=== PATIENT | female | born 1955 | race Caucasian/White ===

== ENCOUNTER → 2017-02-26 | Outpatient (CLI) | payer BC ==
--- NOTE | 2017-02-26 12:17 | P.STRESS ---
- Stress Test Note Stress Test Results/Findings: Exam Performed: stress echo exercise Exam Date: 02/26/17 Height: 5 ft 8 in Weight: 116.573 kg Protocol: GEOVANNI Stage: STAGE 2 Duration of Exercise: 5:03 MIN Resting Heart Rate: 91 Resting Blood Pressure: 160/73 Maximum Achieved Heart Rate: 153 Maximum Achieved Blood Pressure: 199/81 85% PMHR: 135 100% PMHR: 158 METS: 3.6 Technologist Comment: Stress Test Results/Findings: This is a 61-year-old female was referred for a stress echocardiogram for evaluation of chest pain. Patient has history of hypertension. Baseline EKG showed sinus rhythm with mild diffuse ST-T abnormalities. Blood pressure at rest is 160/73. Was started of 91. Patient woke up about 5 minutes and 30 seconds achieving a maximal to 153 with a blood pressure 119/81. EKGs taken during exercise showed more pronounced ST-T changes in the inferolateral leads with upsloping ST segments. These changes resolved quickly within 3 minutes, in the post exercise period. Patient did not express any chest pain. Echo findings showed normal wall motion and thickening at rest. Stress echo showed augmentation wall motion and thickening in all segments. Final impression: #1. Nondiagnostic stress test because of baseline EKG normalities. #2. Patient did not experience any chest pain. #3. Negative stress echo.
== END | disposition home or self-care (01) ==
LOC: RADMAMWWP 10:15
PROVIDERS: ATTEND Family Medicine
DX: R07.89 Other chest pain (principal)
CPT/HCPCS: 93017; 93350

== ENCOUNTER 2018-10-20 17:48 | Observation (INO) | payer BC ==
--- NOTE | 2018-10-20 17:59 | ED ---
Chest Pain HPI - General Chief Complaint: Chest Pain Stated Complaint: chest pain Time Seen by Provider: 10/20/18 17:58 Source: patient, family, RN notes reviewed, old records reviewed Mode of arrival: wheelchair Limitations: no limitations - History of Present Illness Initial Comments: This is a 63-year-old female the ER for evasive chest pain anterior chest pain chest pain that occurred while shopping today. She then went home and it and experienced chest pain prior to dinner. Patient's chest pain as heaviness anterior shortness of breath and diaphoresis of both involved. Patient currently has continued chest pain MD Complaint: chest pain -: hour(s) Onset: during rest, during exertion Pain Location: substernal, left chest Pain Radiation: LUE Severity: mild Severity scale (1-10): 5 Quality: tightness, heaviness Consistency: intermittent Improves With: nothing Worsens With: nothing Anginal Symptoms: diaphoresis, dyspnea Other Symptoms: palpitations Treatments Prior to Arrival: none - Related Data Home Medications Medication Instructions Recorded Confirmed Aspirin EC [Ecotrin Low Dose] 81 mg PO DAILY 10/20/18 10/20/18 Allergies Allergy/AdvReac Type Severity Reaction Status Date / Time latex Allergy BLISTERS Verified 10/20/18 22:26 TAPE Allergy Intermediate Rash/Hives Uncoded 10/20/18 22:26 Review of Systems ROS Statement: Those systems with pertinent positive or pertinent negative responses have been documented in the HPI. ROS Other: All systems not noted in ROS Statement are negative. EKG Findings - EKG Comments: EKG Findings:: EKG shows sinus rhythm rate of 66, VA 166, QRS 84, QTC 440 Past Medical History Additional Past Medical History / Comment(s): HYPOGLYCEMIA History of Any Multi-Drug Resistant Organisms: None Reported Past Surgical History: Joint Replacement Additional Past Surgical History / Comment(s): RIGHT AND LEFT TOTAL KNEE,THROAT ABSCESS,CARPAL TUNNEL RELEASE Past Anesthesia/Blood Transfusion Reactions: No Reported Reaction Smoking Status: Former smoker Past Alcohol Use History: None Reported Past Drug Use History: None Reported - Past Family History Mother Family Medical History: No Reported History General Exam Limitations: no limitations General appearance: alert, in no apparent distress Head exam: Present: atraumatic, normocephalic, normal inspection Eye exam: Present: normal appearance, PERRL, EOMI. Absent: scleral icterus, conjunctival injection, periorbital swelling ENT exam: Present: normal exam, mucous membranes moist Neck exam: Present: normal inspection. Absent: tenderness, meningismus, lymphadenopathy Respiratory exam: Present: normal lung sounds bilaterally. Absent: respiratory distress, wheezes, rales, rhonchi, stridor Cardiovascular Exam: Present: regular rate, normal rhythm, normal heart sounds. Absent: systolic murmur, diastolic murmur, rubs, gallop, clicks GI/Abdominal exam: Present: soft, normal bowel sounds. Absent: distended, tenderness, guarding, rebound, rigid Extremities exam: Present: normal inspection, full ROM, normal capillary refill. Absent: tenderness, pedal edema, joint swelling, calf tenderness Back exam: Present: normal inspection Neurological exam: Present: alert, oriented X3, CN II-XII intact Psychiatric exam: Present: normal affect, normal mood Skin exam: Present: warm, dry, intact, normal color. Absent: rash Course Vital Signs 10/20/18 10/20/18 17:52 20:53 Temperature 98.4 F Pulse Rate 76 61 Respiratory 16 16 Rate Blood Pressure 180/87 148/88 O2 Sat by Pulse 98 100 Oximetry - Reevaluation(s) Reevaluation #1: Medical record is reviewed and noncontributory Patient remains with recurrent chest pain Chest Pain MDM - MDM 63 female the ER for evasive chest pain. typical chest pain in character. Patient has mild cardiac risk, patient will be admitted for cardiac observation , treat she'll troponins Critical Care Time Critical Care Time: Yes Total Critical Care Time: 31 Disposition Clinical Impression: Chest pain Disposition: ADMITTED IP TO THIS HOSP Condition: Undetermined
[2018-10-20 18:54] LABS: Basophils # (A) 0.1 k/uL (0-0.2); Basophils % (A) 1 %; Eosinophils # (A) 0.3 k/uL (0-0.7); Eosinophils % (A) 6 %; HCT 42.5 % (34.0-46.0); HGB 13.8 gm/dL (11.4-16.0); Lymphocytes # (A) 1.9 k/uL (1.0-4.8); Lymphocytes % (A) 33 %; MCH 30.3 pg (25.0-35.0); MCHC 32.4 g/dL (31.0-37.0); MCV 93.4 fL (80.0-100.0); Mean Platelet Volume 7.4; Monocytes # (A) 0.3 k/uL (0-1.0); Monocytes % (A) 5 %; Neutrophils # (A) 2.9 k/uL (1.3-7.7); Neutrophils % (A) 52 %; Platelet Count 322 k/uL (150-450); RBC 4.55 m/uL (3.80-5.40); RDW 13.4 % (11.5-15.5); WBC 5.6 k/uL (3.8-10.6)
[2018-10-20 19:01] LABS: INR 0.9 (<1.2); Partial Thromboplastin Time 27.5 sec (22.0-30.0); Prothrombin Time 10.2 sec (9.0-12.0)
[2018-10-20 19:03] LABS: ALT 38 U/L (9-52); AST 29 U/L (14-36); Albumin 4.1 g/dL (3.5-5.0); Alkaline Phosphatase 99 U/L (38-126); Anion Gap 8 mmol/L; Blood Urea Nitrogen 13 mg/dL (7-17); Calcium 9.4 mg/dL (8.4-10.2); Carbon Dioxide 25 mmol/L (22-30); Chloride 109 mmol/L (98-107); Glucose 98 mg/dL (74-99); Lipase 154 U/L (23-300); Potassium 4.3 mmol/L (3.5-5.1); Sodium 142 mmol/L (137-145); Total Bilirubin 0.5 mg/dL (0.2-1.3); Total Protein 7.2 g/dL (6.3-8.2)
--- NOTE | 2018-10-20 19:14 | XR ---
EXAMINATION TYPE: XR chest 2V DATE OF EXAM: 10/20/2018 COMPARISON: None INDICATION: Chest pain TECHNIQUE: Frontal and lateral views of the chest are obtained. FINDINGS: The heart size is normal. The pulmonary vasculature is normal. The lungs are clear. IMPRESSION: 1. No acute pulmonary process.
[2018-10-20] MEDS ORDERED: NITROGLYCERIN SL TABS 0.4 MG TAB SUBLINGUAL PRN (20:31)
[2018-10-20] MEDS ORDERED: HEPARIN SODIUM,PORCINE 5,000 UNIT/ML 1 ML VIAL IV ONE (20:31)
[2018-10-20] MEDS ORDERED: HEPARIN SODIUM,PORCINE 5,000 UNIT/ML 1 ML VIAL IV PRN (20:36)
[2018-10-20] MEDS ORDERED: HEPARIN SOD,PORK IN 0.45% NACL 25,000 UNIT in 0.45% NACL 1 250ML.BAG IV SCH (20:45)
[2018-10-20 22:06] VITALS: RESP 18
[2018-10-20] MEDS: METOPROLOL TARTRATE 25 MG TAB PO SCH (23:44)
[2018-10-21] MEDS ORDERED: TEMAZEPAM 15 MG CAP PO PRN (00:01)
[2018-10-21] MEDS ORDERED: ACETAMINOPHEN TAB 500 MG TAB PO PRN (00:01)
[2018-10-21] MEDS ORDERED: ALPRAZolam 0.25 MG TAB PO PRN (00:01)
[2018-10-21] MEDS ORDERED: PANTOPRAZOLE 40 MG TABLET PO SCH (07:30)
--- NOTE | 2018-10-21 08:04 | HP ---
HISTORY AND PHYSICAL DATE OF SERVICE: 10/20/2018 CHIEF COMPLAINT: Chest pain. HISTORY OF PRESENT ILLNESS: This 63-year-old woman with a past medical history of multiple medical problems including history of hypertension, history of hypoglycemia, history of DJD being followed by Dr. Weeks in the outpatient setting, was complaining of left- sided chest pain. Today the patient apparently had different type of chest pain with heaviness in the anterior part of the chest and patient was taken to [facility] and admitted for further evaluation and treatment. The patient also recurrence of pain also. There is no history of any fever, rigors. No history headache, loss of consciousness or seizures. The patient's blood pressure has been watched at this time. Patient apparently has had some . There is no history of any fever, rigors or chills at this time. The patient had stress echo in 2017, which was nondiagnostic. PAST MEDICAL HISTORY: History of hypertension, hypoglycemia. MEDICATIONS: Medications prior to admission include home medications are: 1. Aspirin 325 mg daily. 2. Lipitor 80 mg daily. 4. Lopressor 25 mg p.o. daily. 5. Nitrostat 0.4 sublingual p.r.n. ALLERGIES: Allergies are LATEX, TAPE. FAMILY HISTORY: No history of heart disease or strokes in the family. SOCIAL HISTORY: Previous history of smoking. No history of alcohol intake. REVIEW OF SYSTEMS: ENT: No diminished hearing or diminished vision. CARDIOVASCULAR SYSTEM: As mentioned earlier. RESPIRATORY SYSTEM: As mentioned earlier. GI: No nausea. : No dysuria. NERVOUS SYSTEM: No numbness or weakness. ALLERGY/IMMUNOLOGY: No history of asthma. MUSCULOSKELETAL: As mentioned earlier. HEMATOLOGY/ONCOLOGY: No history of anemia. ENDOCRINE: No history of diabetes. CONSTITUTIONAL: As mentioned earlier. DERMATOLOGY: Negative. RHEUMATOLOGY: Negative. PSYCHIATRY: As mentioned earlier. PHYSICAL EXAMINATION: The patient is alert and oriented x3. The pulse is 63, blood pressure 157/84, respiration 18, temperature 97.8, pulse ox 96% on room air. HEENT: Conjunctivae normal. NECK: No jugular venous distention. CARDIOVASCULAR: S1, S2 muffled. No S3, no S4. RESPIRATORY: Breath sounds diminished at the bases. No rhonchi. No crackles. Abdomen is soft, nontender. No mass palpable. LEGS: No edema. No swelling. NERVOUS SYSTEM: Higher function as mentioned earlier. Moves all 4 limbs. No focal motor, sensory deficits. LYMPHATICS: No lymphadenopathy of the neck, axillae or groin. SKIN: No ulcer, rash or bleeding. JOINTS: No active deforming arthropathy. LABS: CBC within normal. Sodium 142, potassium 4.3. ASSESSMENT: 1. Chest pain possible unstable angina. 2. Hypertension. 3. Hypoglycemia. 4. History of degenerative joint disease. 5. ST-T changes on the EKG. RECOMMENDATIONS AND DISCUSSION: In this 63-year-old woman who presented with multiple complex medical issues, we will monitor the patient closely. Continue the current medication, continue symptomatic treatment. Rule out myocardial infarction. Unstable angina protocol. Closely follow with Cardiology. Otherwise, possible stress test versus cardiac catheterization. The patient did have a stress echo which could not be interpreted previously. Prognosis guarded. Resume the home medications. Further recommendations to follow. A copy of dictation forwarded to Dr. Weeks who is the primary physician. MMODL / IJN: [id number] / TEA
[2018-10-21] MEDS ORDERED: CAFFEINE CITRATE 60 MG/3 ML VIAL IV PRN (08:27)
[2018-10-21] MEDS ORDERED: REGADENOSON 0.4 MG/5 ML SYRINGE IV ONE (08:27)
--- NOTE | 2018-10-21 08:30 | P.CRDCN ---
History of Present Illness Consult date: 10/21/18 Chief complaint: Chest pain History of present illness: This is a pleasant 63-year-old female patient with a past medical history significant for hypertension as well as significant family history of coronary artery disease presented to the hospital complaining of chest discomfort. She was in her usual state of health yesterday when she was doing some shopping and started experiencing discomfort in the chest, as a sharp kind of discomfort , with some radiation to the left arm, with associated symptoms of shortness of breath and sweating. No dizziness or lightheadedness. No syncope. The discomfort lasted for few minutes only and then subsided. The EKG showed sinus rhythm without any significant ST or T-wave abnormalities but with nonspecific changes. The cardiac enzymes came in to be unremarkable. The chest x-ray did not show any acute abnormalities. The patient does have hypertension. No dyslipidemia. No major cardiovascular surgery before. No history of smoking as well as. But she does have a very significant family history of coronary artery disease. Past Medical History Past Medical History: Hypertension Additional Past Medical History / Comment(s): HYPOGLYCEMIA, Borderline hypertension pt states that she was on a medication and was taken off due to hypotension-patient and dr "watching her BP at this time", stress test 2017- pt states that the results were questionable History of Any Multi-Drug Resistant Organisms: None Reported Past Surgical History: Joint Replacement Additional Past Surgical History / Comment(s): RIGHT AND LEFT TOTAL KNEE,THROAT ABSCESS,CARPAL TUNNEL RELEASE Past Anesthesia/Blood Transfusion Reactions: No Reported Reaction Smoking Status: Former smoker - Past Family History Mother Family Medical History: No Reported History Medications and Allergies Home Medications Medication Instructions Recorded Confirmed Type Aspirin EC [Ecotrin Low Dose] 81 mg PO DAILY 10/20/18 10/20/18 History Allergies Allergy/AdvReac Type Severity Reaction Status Date / Time latex Allergy BLISTERS Verified 10/20/18 22:26 TAPE Allergy Intermediate Rash/Hives Uncoded 10/20/18 22:26 Physical Exam Vitals: Vital Signs Temp Pulse Pulse Resp BP BP Pulse Ox 10/21/18 07:59 98.1 F 58 L 18 129/84 97 10/21/18 03:42 97.7 F 55 L 18 113/67 95 10/21/18 03:15 18 10/20/18 22:53 18 10/20/18 22:04 97.8 F 63 18 157/84 96 10/20/18 20:53 61 16 148/88 100 10/20/18 17:52 98.4 F 76 16 180/87 98 Intake and Output 10/20/18 10/21/18 10/21/18 22:59 06:59 14:59 Intake Total 65.167 Balance 65.167 Intake: Intake, IV Titration 65.167 Amount Heparin Sod,Pork in 0.45% 65.167 NaCl 25,000 unit In 0.45 % NaCl 1 250ml.bag @ 8. 819 UNITS/KG/HR 10 mls/hr IV .Q24H [facility] Rx#: [id number] Other: Voiding Method Toilet Toilet # Voids 2 Weight 113.398 kg - Constitutional General appearance: no acute distress - Respiratory Respiratory: bilateral: CTA - Cardiovascular Rhythm: regular Heart sounds: normal: S1, S2 Abnormal Heart Sounds: systolic murmur Results 10/20/18 18:25 10/20/18 18:25 Cardiac Enzymes 10/20/18 10/20/18 10/21/18 Range/Units 18:25 18:25 00:35 AST 29 (14-36) U/L Troponin I <0.012 <0.012 (0.000-0.034) ng/mL Coagulation 10/20/18 10/21/18 Range/Units 18:25 03:01 PT 10.2 (9.0-12.0) sec APTT 27.5 40.0 H (22.0-30.0) sec CBC 10/20/18 Range/Units 18:25 WBC 5.6 (3.8-10.6) k/uL RBC 4.55 (3.80-5.40) m/uL Hgb 13.8 (11.4-16.0) gm/dL Hct 42.5 (34.0-46.0) % Plt Count 322 (150-450) k/uL Comprehensive Metabolic Panel 10/20/18 Range/Units 18:25 Sodium 142 (137-145) mmol/L Potassium 4.3 (3.5-5.1) mmol/L Chloride 109 H (98-107) mmol/L Carbon Dioxide 25 (22-30) mmol/L BUN 13 (7-17) mg/dL Creatinine 0.80 (0.52-1.04) mg/dL Glucose 98 (74-99) mg/dL Calcium 9.4 (8.4-10.2) mg/dL AST 29 (14-36) U/L ALT 38 (9-52) U/L Alkaline Phosphatase 99 (38-126) U/L Total Protein 7.2 (6.3-8.2) g/dL Albumin 4.1 (3.5-5.0) g/dL Current Medications Generic Name Dose Route Start Last Admin Trade Name Freq PRN Reason Stop Dose Admin Acetaminophen 500 mg 10/21/18 00:01 Tylenol Tab PO Q6HR PRN Fever and/ or Pain Alprazolam 0.25 mg 10/21/18 00:01 Xanax PO TID PRN Anxiety Aspirin 325 mg 10/21/18 09:00 Aspirin PO DAILY [facility] Atorvastatin Calcium 80 mg 10/21/18 09:00 Lipitor PO DAILY [facility] Heparin Sodium (Porcine) 0 unit 10/20/18 20:36 10/21/18 03:36 Heparin IV 2,825 unit Q6HR PRN Administration Low PTT Protocol Heparin Sodium/Sodium Chloride 250 mls @ 10 mls/hr 10/20/18 20:45 10/21/18 03 :36 25,000 unit/ Sodium Chloride IV 10.85 units/kg/hr .Q24H [facility] 12.3 mls/hr Titration Protocol 8.819 UNITS/KG/HR Metoprolol Tartrate 25 mg 10/20/18 21:00 10/20/18 23:44 Lopressor PO 25 mg BID [facility]BDIEL Administration Nitroglycerin 0.4 mg 10/20/18 20:31 Nitrostat SUBLINGUAL Q5M PRN Chest Pain Pantoprazole Sodium 40 mg 10/21/18 07:30 Protonix PO AC-BRKFST [facility] Temazepam 15 mg 10/21/18 00:01 Restoril PO HS PRN Insomnia Intake and Output 10/20/18 10/21/18 10/21/18 22:59 06:59 14:59 Intake Total 65.167 Balance 65.167 Intake: Intake, IV Titration 65.167 Amount Heparin Sod,Pork in 0.45% 65.167 NaCl 25,000 unit In 0.45 % NaCl 1 250ml.bag @ 8. 819 UNITS/KG/HR 10 mls/hr IV .Q24H [facility] Rx#: [id number] Other: Voiding Method Toilet Toilet # Voids 2 Weight 113.398 kg 10/20/18 18:25 10/20/18 18:25 Assessment and Plan Assessment: Assessment #1 atypical chest discomfort #2 hypertension #3 significant family history of coronary artery disease Plan #1 the patient was ruled out for acute coronary event #2 we will obtain stress test #3 follow-up with the patient Thank you for allowing us participate in her care
[2018-10-21 08:32] LABS: Mean Platelet Volume 7.9; Platelet Count 286 k/uL (150-450)
[2018-10-21] MEDS ORDERED: ATORVASTATIN 80 MG TAB PO SCH (09:00)
[2018-10-21] MEDS ORDERED: ASPIRIN 325 MG TAB PO SCH (09:00)
[2018-10-21 10:11] LABS: Cholesterol 169 mg/dL (<200); HDL Cholesterol 36 mg/dL (40-60); LDL Cholesterol,Calculated 111 mg/dL (0-99); Triglycerides 111 mg/dL (<150)
--- NOTE | 2018-10-21 13:55 | EST ---
EXERCISE STRESS AGE: 63 SEX: F HT: 5'8" WT: 252 PROTOCOL: Lexiscan Cardiolite Stress Test HEART RATE REST: 66 BLOOD PRESSURE REST: 153/94 MAXIMUM HEART RATE ACHIEVED: 85 MAXIMUM BLOOD PRESSURE: 174/100 INDICATIONS: Chest pain. CLINICAL INFORMATION: STRESS DATA: Pretesting physical examination showed a heart rate of 66, pressure is 153/94 mmHg. Baseline EKG showed sinus mechanism, 0.4 mg of Lexiscan given over 15 seconds per protocol. Max heart rate was 85 beats per minute and maximum pressure was 174/100 mmHg. Clinically, the patient did not have any symptoms and the EKG did not show any significant ST or T-wave abnormalities concerning for ischemia. CONCLUSION: 1. Nondiagnostic electrocardiogram stress testing response to Lexiscan. 2. Please follow up on the Cardiolite portion on separate report. MMODL / IJN: [id number] /
[2018-10-21 15:29] VITALS: BP 131/78; PULSE 60; TEMP 98.2
--- NOTE | 2018-10-21 15:37 | NM ---
EXAMINATION TYPE: NM stress lexiscan cardiolite DATE OF EXAM: 10/21/2018 COMPARISON: NONE HISTORY: Chest pain TECHNIQUE: After the intravenous administration of 9.8 mCi Tc 99m Sestamibi - Cardiolite resting SPE CT images acquired 45 minutes post injection. The patient received 0.4mg Lexiscan, 24.4 mCi Tc 99m Sestamibi - Stress images obtained [address] injection FINDINGS: No fixed or reversible perfusion defects are evident. Gated wall motion appears normal. Ejection frac tion of 55% is normal. Some cardiac thinning may be present on the polar maps. This appears less suspicious on the SPECT deuce ging. IMPRESSION: 1. No stress-induced ischemic change.
[2018-10-21] MEDS ORDERED: RX INFO: IV CONTRAST WAS GIVEN 1 EACH MISC MISCELLANE PRN (16:13)
--- NOTE | 2018-10-21 16:59 | CT ---
EXAMINATION TYPE: CT angio chest DATE OF EXAM: 10/21/2018 4:46 PM COMPARISON: None HISTORY: chest pain CT DLP: 511.1 mGycm Automated exposure control for dose reduction was used. CONTRAST: CTA scan of the thorax is performed with IV Contrast, patient injected with 93cc mL of Isovue 370, pu lmonary embolism protocol. There are 3-D post processed images.. FINDINGS: There is patchy atelectasis at the lung bases. There is no pleural effusion. Heart size is normal. Th ere is no pericardial effusion. Thoracic aorta appears intact without evidence of aneurysm or dissection. There is no mediastinal sallie nopathy. There are no hilar masses. There is normal contrast opacification of the pulmonary arteries. There are no filling defects. There is degenerative spurring in the thoracic spine. IMPRESSION: NO EVIDENCE OF PULMONARY EMBOLISM. PATCHY ATELECTASIS AT THE LUNG BASES.
[2018-10-21] MEDS: METOPROLOL TARTRATE 25 MG TAB PO SCH (17:11)
--- NOTE | 2018-10-23 08:51 | DS ---
DISCHARGE SUMMARY DATE OF ADMISSION: 10/20/2018 DATE OF DISCHARGE: 10/21/2018 FINAL DIAGNOSES: 1. Chest pain, could be musculoskeletal. 2. Obesity, body mass index 38. 3. Essential hypertension. HOSPITAL COURSE: This patient presented with chest pain. Did have a nuclear stress test that was negative. CT angio was negative for PE. The patient has previously been seen by Dr. Erik Paul with whom the patient will follow. On examination, temperature 98.3 pulse 61, respiratory 18, blood pressure 152/88, repeat blood pressure 131/78. Lungs are clear. CARDIOVASCULAR: First and second sounds normal. LDL 111. DISCHARGE MEDICATION: Aspirin 81 mg a day. Follow up with Dr. Erik Paul in one week. Follow up with Dr. Weeks in one week. MMODL / IJN: [id number] /
== END 2018-10-21 18:42 | disposition home or self-care (01) ==
LOC: EC 17:48 → 1SOBS 20:31
PROVIDERS: ADMIT Hospitalist; ATTEND Hospitalist
DX: R07.89 Other chest pain (principal); R06.02 Shortness of breath; R06.00 Dyspnea, unspecified; R61 Generalized hyperhidrosis; R00.2 Palpitations; E66.9 Obesity, unspecified; Z68.38 Body mass index [BMI] 38.0-38.9, adult; E16.2 Hypoglycemia, unspecified; I10 Essential (primary) hypertension; M19.90 Unspecified osteoarthritis, unspecified site; Z79.82 Long term (current) use of aspirin; Z79.899 Other long term (current) drug therapy; Z91.040 Latex allergy status; Z91.048 Other nonmedicinal substance allergy status; Z87.891 Personal history of nicotine dependence; Z82.49 Family history of ischemic heart disease and other diseases of the circulatory system
CPT/HCPCS: 96366 ×2; 96376 ×2; 96365; 99291; 36415; 93005; 93017; 83880; 80061; 80053; 83690; 83735; 84484 ×2; 85025; 85049; 85610; 85730 ×2; 71046; 71275; 78452; G0378 ×2; A9500; J1644 ×3; J2785; Q9967

== ENCOUNTER → 2021-05-12 | Outpatient (CLI) | payer BC ==
--- NOTE | 2021-05-13 12:36 | MM ---
Reason for exam: screening (asymptomatic). Last mammogram was performed 6 years and 2 months ago. History: Patient is postmenopausal and had first child at age 41. Family history of breast cancer in sister at age 64 and premenopausal breast cancer in sister at age 39. Benign excisional biopsy of the left breast, June 10, 1999. Physical Findings: A clinical breast exam by your physician is recommended on an annual basis and results should be correlated with mammographic findings. MG Screening Mammo w CAD Bilateral CC and MLO view(s) were taken. Prior study comparison: February 24, 2015, bilateral MG screening mammo w CAD. September 19, 2013, [facility] DIGITAL RIGHT MAMMOGRAM w/CAD. The breast tissue is heterogeneously dense. This may lower the sensitivity of mammography. Finding: There is a subtle, indistinct, equal architectural distortion in the upper outer quadrant, middle position of the right breast, may have associated calcifications. Focal asymmetry, changing from 2014, left upper inner quadrant. New finding since February 24, 2015 and September 19, 2013. ASSESSMENT: Incomplete: need additional imaging evaluation, BI-RAD 0 RECOMMENDATION: Special view mammogram of both breasts. If lesion persists on supplemental views, image directed ultrasound is recommended. [facility] will attempt to contact patient to return for supplemental views and ultrasound if indicated.
== END | disposition home or self-care (01) ==
LOC: RADMAMWWP 15:59
PROVIDERS: ATTEND Family Medicine
DX: Z12.31 Encounter for screening mammogram for malignant neoplasm of breast (principal); Z78.0 Asymptomatic menopausal state; Z80.3 Family history of malignant neoplasm of breast
CPT/HCPCS: 77067

== ENCOUNTER → 2021-05-27 | Outpatient (CLI) | payer BC ==
--- NOTE | 2021-05-30 12:11 | MM ---
Reason for exam: additional evaluation requested from abnormal screening. Last mammogram was performed less than 1 month ago. History: Patient is postmenopausal and had first child at age 41. Family history of breast cancer in sister at age 64 and premenopausal breast cancer in sister at age 39. Benign excisional biopsy of the left breast, June 10, 1999. Physical Findings: Nurse did not find any significant physical abnormalities on exam. MG 3D Work Up W/Cad VALORIE Bilateral ML view(s) were taken. CC with magnification and MLO with magnification view(s) were taken of the right breast. Spot compression CC and spot compression MLO view(s) were taken of the left breast. Prior study comparison: May 12, 2021, bilateral MG screening mammo w CAD. There are scattered fibroglandular densities. Finding: There are diffuse/scattered, fine calcifications in the middle position of the right breast. There is no discrete abnormality including area of concern. No significant changes in finding since May 12, 2021. These results were verbally communicated with the patient and result sheet given to the patient on 05/27/21. ASSESSMENT: Probably benign, BI-RAD 3 RECOMMENDATION: Follow-up diagnostic mammogram of both breasts in 6 months.
== END | disposition home or self-care (01) ==
LOC: RADMAMWWP 14:53
PROVIDERS: ATTEND Family Medicine
DX: R92.8 Other abnormal and inconclusive findings on diagnostic imaging of breast (principal); R92.1 Mammographic calcification found on diagnostic imaging of breast; Z80.3 Family history of malignant neoplasm of breast; Z78.0 Asymptomatic menopausal state
CPT/HCPCS: 77062; 77066

== ENCOUNTER → 2021-11-28 | Outpatient (CLI) | payer BC ==
--- NOTE | 2021-11-29 08:34 | MM ---
Reason for exam: follow-up at short interval from prior study. Last mammogram was performed 6 months ago. History: Patient is postmenopausal and had first child at age 41. Family history of breast cancer in sister at age 49, breast cancer in sister at age 64, and premenopausal breast cancer in sister at age 39. Benign excisional biopsy of the left breast, June 10, 1999. Physical Findings: A clinical breast exam by your physician is recommended on an annual basis and results should be correlated with mammographic findings. MG 3D Diag Mammo W/Cad VALORIE Bilateral CC and MLO view(s) were taken. Prior study comparison: May 27, 2021, bilateral MG 3d work up w/cad VALORIE. May 12, 2021, bilateral MG screening mammo w CAD. There are scattered fibroglandular densities. Stable regional calcifications right breast laterally unchanged. Asymmetric density central inner left CC view, stable for 6 months. This may be surgical scar. Additional follow up recommended. ASSESSMENT: Probably benign, BI-RAD 3 RECOMMENDATION: Follow-up diagnostic mammogram of the left breast in 6 months.
== END | disposition home or self-care (01) ==
LOC: RADMAMWWP 14:44
PROVIDERS: ATTEND Family Medicine
DX: R92.1 Mammographic calcification found on diagnostic imaging of breast (principal); Z78.0 Asymptomatic menopausal state; Z80.3 Family history of malignant neoplasm of breast
CPT/HCPCS: 77062; 77066

== ENCOUNTER → 2023-03-21 | Outpatient (CLI) | payer BC ==
--- NOTE | 2023-03-22 20:48 | MM ---
Reason for Exam: Screening (asymptomatic). Last mammogram was performed 1 year(s) and 3 month(s) ago. Patient History: Menarche at age 12. First Full-Term at age 41. Late child-bearing (after 30). Postmenopausal. 06/10/1999, Benign Excisional Biopsy on the left side. Sister had breast cancer, age 64. Sister had breast cancer, age 49. Sister had breast cancer, age 39. Risk Values: Mi 5 year model risk: 5.9%. NCI Lifetime model risk: 18.1%. Prior Study Comparison: 05/12/2021 Bilateral Screening Mammogram, LOCATED WITHIN [facility]. 05/27/2021 Bilateral Diagnostic Mammogram, LOCATED [facility]IN [facility]. 11/28/2021 Bilateral Diagnostic Mammogram, LOCATED WITHIN [facility]. Tissue Density: There are scattered fibroglandular densities. Findings: Analyzed By CAD. Centrally located punctate calcifications on both sides remain unchanged. Redemonstrated postexcisional changes on the left. There is no suspicious group of microcalcifications or new suspicious mass in either breast. Overall Assessment: Benign, BI-RAD 2 Management: Screening Mammogram of both breasts in 1 year. See note below in regards to patient's increased 5 year Mi score. Patient should continue monthly self-breast exams. A clinical breast exam by your physician is recommended on an annual basis. This exam should not preclude additional follow-up of suspicious palpable abnormalities. Note on Mi scores and lifetime risk: 1. A Mi score greater than 3% is considered moderate risk. If this is the case, consider specialist referral to assess eligibility for a risk reducing agent. 2. If overall lifetime risk for the development of breast cancer is 20% or higher, the patient may qualify for future screening with alternating mammogram and breast MRI. Electronically signed and approved by: Carol Lopez M.D. Radiologist
== END | disposition home or self-care (01) ==
LOC: RADMAMWWP 16:03
PROVIDERS: ATTEND Family Medicine
DX: Z12.31 Encounter for screening mammogram for malignant neoplasm of breast (principal); Z78.0 Asymptomatic menopausal state; Z80.3 Family history of malignant neoplasm of breast
CPT/HCPCS: 77063; 77067

== ENCOUNTER → 2024-03-24 | Outpatient (CLI) | payer BC ==
--- NOTE | 2024-03-26 09:06 | MM ---
Reason for Exam: Screening (asymptomatic). Last screening mammogram was performed 12 month(s) ago. Patient History: Menarche at age 12. First Full-Term at age 41. Late child-bearing (after 30). Postmenopausal. 06/10/1999, Benign Excisional Biopsy on the left side. Sister had breast cancer, age 64. Sister had breast cancer, age 49. Sister had breast cancer, age 39. Risk Values: Mi 5 year model risk: 6.0%. NCI Lifetime model risk: 17.4%. Prior Study Comparison: 05/27/2021 Bilateral Diagnostic Mammogram, [facility]. 11/28/2021 Bilateral Diagnostic Mammogram, [facility]. 03/21/2023 Bilateral MG 3D screening mammo w/cad, [facility]. Tissue Density: There are scattered areas of fibroglandular density. Findings: Analyzed By CAD. There is a new area of distortion outer upper left breast approximately 12 cm from the nipple. Additional views are recommended. There is an additional area of distortion medial left breast which has been worked up previously. Torsion or mass within the right breast. Benign calcifications are seen bilaterally. Overall Assessment: Incomplete: need additional imaging evaluation, BI-RAD 0 Management: Diagnostic Mammogram of the left breast. . Patient should continue monthly self-breast exams. A clinical breast exam by your physician is recommended on an annual basis. This exam should not preclude additional follow-up of suspicious palpable abnormalities. Note on Mi scores and lifetime risk: 1. A Mi score greater than 3% is considered moderate risk. If this is the case, consider specialist referral to assess eligibility for a risk reducing agent. 2. If overall lifetime risk for the development of breast cancer is 20% or higher, the patient may qualify for future screening with alternating mammogram and breast MRI. Electronically signed and approved by: Faraz De Los Santos M.D. Radiologis
== END | disposition home or self-care (01) ==
LOC: RADMAMWWP 07:15
PROVIDERS: ATTEND Family Medicine
DX: Z12.31 Encounter for screening mammogram for malignant neoplasm of breast (principal); R92.323 Mammographic fibroglandular density, bilateral breasts; Z78.0 Asymptomatic menopausal state; Z80.3 Family history of malignant neoplasm of breast
CPT/HCPCS: 77063; 77067

== ENCOUNTER → 2024-04-30 | Outpatient (CLI) | payer MEDICARE ==
--- NOTE | 2024-04-30 09:02 | MM ---
Reason for Exam: Follow-up at short interval from prior study. Last screening mammogram was performed 2 month(s) ago. Patient History: Menarche at age 12. First Full-Term at age 41. Late child-bearing (after 30). Postmenopausal. 06/10/1999, Benign Excisional Biopsy on the left side. Sister had breast cancer, age 64. Sister had breast cancer, age 49. Sister had breast cancer, age 39. Risk Values: Mi 5 year model risk: 6.0%. NCI Lifetime model risk: 17.4%. Prior Study Comparison: 11/28/2021 Bilateral Diagnostic Mammogram, [facility]. 03/21/2023 Bilateral MG 3D screening mammo w/cad, [facility]. 03/24/2024 Bilateral MG 3D screening mammo w/cad, [facility]. Tissue Density: Left: There are scattered areas of fibroglandular density. Findings: Analyzed By CAD. Left: Persistent architectural distortion 10.6 centimeters from the nipple on ML view and 11.4 centers nipple and CC view. The approximate upper outer position round 2:00. Overall Assessment: Incomplete: need additional imaging evaluation, BI-RAD 0 Management: Diagnostic Breast Ultrasound of the left breast. Results were given to the patient verbally at the time of exam. Patient should continue monthly self-breast exams. A clinical breast exam by your physician is recommended on an annual basis. This exam should not preclude additional follow-up of suspicious palpable abnormalities. Note on Mi scores and lifetime risk: 1. A Mi score greater than 3% is considered moderate risk. If this is the case, consider specialist referral to assess eligibility for a risk reducing agent. 2. If overall lifetime risk for the development of breast cancer is 20% or higher, the patient may qualify for future screening with alternating mammogram and breast MRI. Electronically signed and approved by: Manny Heck DO
--- NOTE | 2024-04-30 09:37 | USB ---
Reason for Exam: Additional evaluation requested from abnormal screening. Patient History: Menarche at age 12. First Full-Term at age 41. Late child-bearing (after 30). Postmenopausal. 06/10/1999, Benign Excisional Biopsy on the left side. Sister had breast cancer, age 64. Sister had breast cancer, age 49. Sister had breast cancer, age 39. Risk Values: Mi 5 year model risk: 6.0%. NCI Lifetime model risk: 17.4%. Technique: Method: Targeted. Doppler: Color. Patient Position: RPO. Prior Study Comparison: 11/28/2021 Bilateral Diagnostic Mammogram, [facility]. 03/21/2023 Bilateral MG 3D screening mammo w/cad, [facility]. 03/24/2024 Bilateral MG 3D screening mammo w/cad, [facility]. Findings: The upper outer quadrant of the left breast, the axilla of the left breast and the retroareolar of the left breast were scanned. Technique utilized:US breast workup limited LT Image; Ultrasound imaging of: Area of concern, retroareolar region and axilla. No evidence for organizing fluid collection or mass. Architectural distortion means suspicious on mammography, mammographic stereotactic biopsy recommended. Overall Assessment: Suspicious, BI-RAD 4 Management: Stereotactic Core Biopsy of the left breast. A clinical breast exam by your physician is recommended on an annual basis and results should be correlated with mammographic findings. This exam should not preclude additional follow-up of suspicious palpable abnormalities. Results were given to the patient verbally at the time of exam. Electronically signed and approved by: Manny Heck DO
== END | disposition home or self-care (01) ==
LOC: RADMAMWWP 08:15
PROVIDERS: ATTEND Family Medicine
DX: R92.8 Other abnormal and inconclusive findings on diagnostic imaging of breast (principal); Z78.0 Asymptomatic menopausal state; Z80.3 Family history of malignant neoplasm of breast; R92.323 Mammographic fibroglandular density, bilateral breasts
CPT/HCPCS: 77065; 76642; G0279; 77061

== ENCOUNTER → 2024-05-15 | Day surgery (SDC) | payer MEDICARE ==
[~2024-05-15] MED LIST: ALPRAZolam 0.25 MG TAB PO PRN
[2024-05-15 07:39] VITALS: RESP 16
--- NOTE | 2024-05-15 09:05 | P.PCN ---
Date of Procedure: 05/15/24 Preoperative Diagnosis: Architectural distortion left breast approximately 2:00 position Postoperative Diagnosis: Same Procedure(s) Performed: Left breast stereotactic core biopsy Anesthesia: local Surgeon: Maddy Moser Pathology: other (Breast tissue) Condition: stable Disposition: same day Indications for Procedure: Architectural distortion left breast Description of Procedure: The patient was taken to the stereotactic core biopsy room. A retail attendant film was obtained with the patient in an upright chair. A CC from above approach was used of the left breast. The area of concern was identified. This was confirmed with Dr. Mcclain from radiology. The area was targeted. The breast was prepped using chlorhexidine. 25 cc of 1% lidocaine were used to anesthetize the area of concern. A 9 gauge vacuum-assisted core rotating biopsy needle was driven to the correct coordinates. Prefire film was obtained and the needle was noted to be in the correct location. The needle was fired. A post fire film revealed the needle to be in the correct location. 14 core specimens were obtained. A secure jackson Top-Hat clip was placed. Postprocedure radiograph will be performed to confirm the location of the clip. The patient tolerated the procedure in stable condition will follow with Dr. Segal next week. The specimen is sent to pathology.
[2024-05-15 09:23] VITALS: BP 150/91; PULSE 67; TEMP 98.1
--- NOTE | 2024-05-16 07:51 | MM ---
Date of Procedure: 05/15/24 Preoperative Diagnosis: Architectural distortion left breast approximately 2:00 position Postoperative Diagnosis: Same Procedure(s) Performed: Left breast stereotactic core biopsy Anesthesia: local Surgeon: Maddy Moser Pathology: other (Breast tissue) Condition: stable Disposition: same day Indications for Procedure: Architectural distortion left breast Description of Procedure: The patient was taken to the stereotactic core biopsy room. A manager event film was obtained with the patient in an upright chair. A CC from above approach was used of the left breast. The area of concern was identified. This was confirmed with Dr. Mcclain from radiology. The area was targeted. The breast was prepped using chlorhexidine. 25 cc of 1% lidocaine were used to anesthetize the area of concern. A 9 gauge vacuum-assisted core rotating biopsy needle was driven to the correct coordinates. Prefire film was obtained and the needle was noted to be in the correct location. The needle was fired. A post fire film revealed the needle to be in the correct location. 14 core specimens were obtained. A secure jackson Top-Hat clip was placed. Postprocedure radiograph will be performed to confirm the location of the clip. The patient tolerated the procedure in stable condition will follow with Dr. Segal next week. The specimen is sent to pathology. [facility]
== END ==
LOC: RADMAMWWP 07:18
PROVIDERS: ATTEND Surgery
DX: D05.02 Lobular carcinoma in situ of left breast (principal)
CPT/HCPCS: 88305; 88341; 88342

== ENCOUNTER → 2024-05-15 | Outpatient (CLI) | payer MEDICARE ==
[2024-05-15 08:00] VITALS: BP 124/80; PULSE 60; RESP 18; TEMP 98.2
--- NOTE | 2024-05-15 08:27 | P.GSCN ---
History of Present Illness Consult date: 05/15/24 Reason for Consult: Abnormal left breast mammogram/architectural distortion at 2 o'clock position Requesting physician: Ramirez Weeks History of present illness: Lanette is a 68-year-old white female who on a sreening mammogram on 03-24-24 was noted to have architectural distortion in the left breast. Ultrasound was performed on 04-30-24 which did not reveal a specific lesion at that site. The patient had further diagnostic left breast mammogram on 04-30-24 and the area of architectural distortion remained at the 2 o'clock position in the left breast. This was personally reviewed with Dr. Mcclain. A stereotactic core biopsy was recommended. She does not feel anything of concern in either breast. She had a left breast open biopsy approximately 26 years ago which was benign. She is not complaining of any trauma or infection in either breast. She does have a family history of breast cancer and that 2 sisters have had breast cancer. Caffeine: 2 cups/day nicotine: stopped 40 years ago used to smoke 1PPd for 10 years Mi Risk: 6% lifetime risk: 17.4% We have discussed chemoprophylaxis and at this time she is not interested. Family History: sister diagnosed with breast cancer at 29, at 39; mets to brain sister: diagnosed blood cancer at 47 at 49; sister: diagnosed at 67 with breast cancer doing well at this time brother: prostate cancer No hormonal testing done. Hormonal History: menarche: 12 , breast fed yes, age at : 40 menopause: 44 hormones: none BCP: 10 years Surgical history: Left breast biopsy Bilateral knee replacement Abscess left side of neck Bilateral cataract surgery Medical history: HTN Social History: alcohol: occasional nicotine: as above drugs:none Review of Systems - Constitutional Denies fever, Denies weight loss - EENT Eyes: denies blurred vision Ears: bilateral: tinnitus, deny: decreased hearing Ears, nose, mouth and throat: Denies dysphagia - Breasts bilateral: as per HPI - Cardiovascular Denies chest pain, Denies shortness of breath - Respiratory Denies cough, Denies 7 - Gastrointestinal Reports as per HPI - Genitourinary Genitourinary: Denies dysuria, Denies hematuria Menstruation: Reports postmenopausal - Musculoskeletal Reports as per HPI - Integumentary Denies rash, Denies unusual bruising - Neurological Denies headaches, Denies syncope - Psychiatric Reports as per HPI - Endocrine Reports as per HPI - Hematologic/Lymphatic Denies easy bleeding, Denies easy bruising Hematologic/Lymphatic Comment(s): low dose baby aspirin - Allergic/Immunologic Reports as per HPI, Reports seasonal allergies Past Medical History Past Medical History: Hypertension Additional Past Medical History / Comment(s): HYPOGLYCEMIA History of Any Multi-Drug Resistant Organisms: None Reported Past Surgical History: Joint Replacement Additional Past Surgical History / Comment(s): RIGHT AND LEFT TOTAL KNEE,THROAT ABSCESS,CARPAL TUNNEL RELEASE Past Anesthesia/Blood Transfusion Reactions: No Reported Reaction Past Psychological History: No Psychological Hx Reported Smoking Status: Former smoker Past Alcohol Use History: None Reported Past Drug Use History: None Reported - Past Family History Mother Family Medical History: No Reported History Medications and Allergies Home Medications Medication Instructions Recorded Confirmed Type Aspirin EC [Ecotrin Low Dose] 81 mg PO DAILY 10/20/18 05/15/24 History Valsartan 40 mg PO DAILY 05/05/24 05/15/24 History Allergies Allergy/AdvReac Type Severity Reaction Status Date / Time latex Allergy BLISTERS Verified 05/15/24 07:57 TAPE Allergy Intermediate Rash/Hives Uncoded 05/15/24 07:57 Surgical - Exam Vital Signs Temp Pulse Resp BP Pulse Ox 98.2 F 60 18 124/80 95 05/15/24 07:58 05/15/24 07:58 05/15/24 07:58 05/15/24 07:58 05/15/24 07:58 - General no distress - Eyes normal ocular movement - Neck trachea midline - Respiratory normal respiratory effort, clear to auscultation - Cardiovascular Rhythm: regular Heart Sounds: normal: S1, S2 - Abdomen Abdomen: soft - Integumentary normal turgor - Neurologic no disoriented, no combative - Musculoskeletal normal gait, normal posture - Psychiatric oriented to time, oriented to person, oriented to place, speech is normal, memory intact Breast Exam: inspection: bilateral grade, right breast larger than left breast bilateral grade 3 ptosis palpation: right breast: Exam no dominant masses or nodules of concern Right axilla: No adenopathy of concern Left breast: Well-healed scar from prior surgery, no dominant masses or nodules of concern and Multi positional exam Left axilla: No adenopathy of concern Results Mammogram and left breast diagnostic mammogram reviewed with Dr. Shogren, the b ilateral mammogram was from 03-24-2024, the diagnostic left breast mammogram was from 04-30-2024. There is some architectural distortion at the 2 o'clock position for which stereotactic core biopsy was recommended. Assessment and Plan Assessment: Impression: Abnormal left breast mammogram Hypertension Family history of cancer Plan: Left breast stereotactic core biopsy Risk and benefits of the procedure discussed with the patient. Risk include but are not limited to bleeding, infection, reaction to the anesthetic. If the tissue were felt to be discordant then further tissue acquisition may be necessary. The patient understands and wishes to proceed. CC: Dr. Weeks
== END ==
LOC: WWCWWP 07:17
PROVIDERS: ATTEND Surgery
DX: R92.8 Other abnormal and inconclusive findings on diagnostic imaging of breast (principal); I10 Essential (primary) hypertension; Z80.3 Family history of malignant neoplasm of breast; Z87.891 Personal history of nicotine dependence; Z91.040 Latex allergy status; Z91.048 Other nonmedicinal substance allergy status; Z79.899 Other long term (current) drug therapy

== ENCOUNTER → 2024-05-22 | Outpatient (CLI) | payer MEDICARE ==
[2024-05-22 12:05] VITALS: BP 161/75; PULSE 71; RESP 16; TEMP 97.9
--- NOTE | 2024-05-22 12:35 | P.PN ---
Subjective Progress Note Date: 05/22/24 Principal diagnosis: invasive lobular cancer right breast Ramirez Weeks History of present illness: Lanette is a 68-year-old white female who on a sreening mammogram on 03-24-24 was noted to have architectural distortion in the left breast. Ultrasound was performed on 04-30-24 which did not reveal a specific lesion at that site. The patient had further diagnostic left breast mammogram on 04-30-24 and the area of architectural distortion remained at the 2 o'clock position in the left breast. This was personally reviewed with Dr. Mcclain. A stereotactic core biopsy was recommended. She does not feel anything of concern in either breast. She had a left breast open biopsy approximately 26 years ago which was benign. She is not complaining of any trauma or infection in either breast. She does have a family history of breast cancer and that 2 sisters have had breast cancer. core biopsy on 05-15-24 (+) invasive lobular cancer Caffeine: 2 cups/day nicotine: stopped 40 years ago used to smoke 1PPd for 10 years Mi Risk: 6% lifetime risk: 17.4% We have discussed chemoprophylaxis and at this time she is not interested. Family History: sister diagnosed with breast cancer at 29, at 39; mets to brain sister: diagnosed blood cancer at 47 at 49; sister: diagnosed at 67 with breast cancer doing well at this time brother: prostate cancer No hormonal testing done. Hormonal History: menarche: 12 , breast fed yes, age at : 40 menopause: 44 hormones: none BCP: 10 years Surgical history: Left breast biopsy Bilateral knee replacement Abscess left side of neck Bilateral cataract surgery Medical history: HTN Social History: alcohol: occasional nicotine: as above drugs:none Review of Systems - Constitutional Denies fever, Denies weight loss - EENT Eyes: denies blurred vision Ears: bilateral: tinnitus, deny: decreased hearing Ears, nose, mouth and throat: Denies dysphagia - Breasts bilateral: as per HPI - Cardiovascular Denies chest pain, Denies shortness of breath - Respiratory Denies cough - Gastrointestinal Reports as per HPI - Genitourinary Genitourinary: Denies dysuria, Denies hematuria Menstruation: Reports postmenopausal - Musculoskeletal Reports as per HPI - Integumentary Denies rash, Denies unusual bruising - Neurological Denies headaches, Denies syncope - Psychiatric Reports as per HPI - Endocrine Reports as per HPI - Hematologic/Lymphatic Denies easy bleeding, Denies easy bruising Hematologic/Lymphatic Comment(s): low dose baby aspirin - Allergic/Immunologic Reports as per HPI, Reports seasonal allergies Past Medical History Past Medical History: Hypertension Additional Past Medical History / Comment(s): HYPOGLYCEMIA History of Any Multi-Drug Resistant Organisms: None Reported Past Surgical History: Joint Replacement Additional Past Surgical History / Comment(s): RIGHT AND LEFT TOTAL KNEE,THROAT ABSCESS,CARPAL TUNNEL RELEASE Past Anesthesia/Blood Transfusion Reactions: No Reported Reaction Past Psychological History: No Psychological Hx Reported Smoking Status: Former smoker Past Alcohol Use History: None Reported Past Drug Use History: None Reported - Past Family History Mother Family Medical History: No Reported History Medications and Allergies Home Medications Medication Instructions Recorded Confirmed Type Aspirin EC [Ecotrin Low Dose] 81 mg PO DAILY 10/20/18 05/15/24 History Valsartan 40 mg PO DAILY 05/05/24 05/15/24 History Allergies Allergy/AdvReac Type Severity Reaction Status Date / Time latex Allergy BLISTERS Verified 05/15/24 07:57 TAPE Allergy Intermediate Rash/Hives Uncoded 05/15/24 07:57 Objective - Vital Signs Vital signs: Vital Signs Temp 97.9 F 05/22/24 12:02 Pulse 71 05/22/24 12:02 Resp 16 05/22/24 12:02 BP 161/75 05/22/24 12:02 Pulse Ox 98 05/22/24 12:02 FiO2 Intake & Output 05/21/24 05/22/24 05/22/24 18:59 06:59 18:59 Weight 121.563 kg - Constitutional General appearance: Present: cooperative - EENT Eyes: Present: EOMI ENT: Present: hearing grossly normal - Neck Neck: Present: normal ROM - Respiratory Respiratory: bilateral: CTA - Cardiovascular Rhythm: regular - Integumentary Integumentary Comment(s): echymosis right breast, no infection or masses Integumentary: Present: normal turgor - Musculoskeletal Musculoskeletal: Present: gait normal - Psychiatric Psychiatric: Present: A&O x's 3, appropriate affect, intact judgment & insight Assessment and Plan Assessment: impression: stage I invasive lobluar cancer Plan: genetic testing present at tumor board MRI of the breast follow up after tumor board; mastopexy incision with needle localization lumpectomy of the right breast, right sentinel node injection, right sentinel node biopsy, possible right axillary node dissection CC: DR. Weeks
== END ==
LOC: WWCWWP 10:39
PROVIDERS: ATTEND Surgery
DX: C50.911 Malignant neoplasm of unspecified site of right female breast (principal); Z80.3 Family history of malignant neoplasm of breast; Z87.891 Personal history of nicotine dependence; Z91.040 Latex allergy status; Z91.048 Other nonmedicinal substance allergy status

== ENCOUNTER → 2024-06-03 | Outpatient (CLI) | payer MEDICARE ==
--- NOTE | 2024-06-06 13:04 | BMR ---
EXAM DATE: 06/03/2024 EXAM DESCRIPTION: MRI-Breast Bilat (W/WO Contrast) INDICATION: Left breast malignancy, pretreatment staging COMPARISON: PRIOR MRIs: None available. Correlation to mammograms: 05/15/2024, 04/30/2024, 03/21/2023. Correlation to ultrasound: 04/30/2024. CONTRAST: Twelve cc Gadavist IV gadolinium contrast TECHNIQUE: Multiplanar multisequence MR imaging of both breasts was performed with a dedicated breast coil. Images were obtained before and after administration of IV gadolinium, using the standard breast mass protocol. Computer aided detection was utilized for interpretation. FINDINGS: LMP: Postmenopausal General breast composition: There are scattered areas of fibroglandular tissue Background parenchymal enhancement: Mild RIGHT BREAST: The T2 weighted series shows no areas of abnormal signal intensity. Review of the dynamic series shows 1.1 cm area of non mass enhancement at approximately 9 o'clock with persistent enhancement kinetics, favored to correspond to area with microcalcifications seen on CC view laterally middle depth. LEFT BREAST: The T2 weighted series shows no areas of abnormal signal intensity. Review of the dynamic series shows previously biopsied mass which estimates 2.2 x 1.6 x 1.4 cm with additional areas of non mass enhancement extending anteriorly and posteriorly for total AP dimension of approximately 6.5 cm and craniocaudal dimension of 3.1 cm. No evidence of extension to the nipple or chest wall.. LYMPH NODES: There is no evidence of internal mammary or axillary adenopathy. IMPRESSION: RIGHT BREAST: 1.1 cm area of non mass enhancement at approximately 9 o'clock 9 cm from the nipple may represent fibrocystic changes, however likely corresponds to area of grouped calcifications seen mammographically. Diagnostic right breast mammogram with spot magnification views and targeted ultrasound is recommended. If no suspicious findings, finding is considered benign. LEFT BREAST: Known malignancy in the left breast upper outer quadrant with primary mass estimating 2.2 x 1.6 x 1.4 cm in additional areas of non mass enhancement for total area of abnormal enhancement estimating 6.5 x 3.1 cm. OVERALL ASSESSMENT--BI-RADS 0: Need additional imaging. MTDD
== END | disposition home or self-care (01) ==
LOC: RADMRIMAIN 21:15
PROVIDERS: ATTEND Surgery
DX: C50.412 Malignant neoplasm of upper-outer quadrant of left female breast (principal)
CPT/HCPCS: 77049

== ENCOUNTER → 2024-06-12 | Outpatient (CLI) | payer MEDICARE ==
--- NOTE | 2024-06-12 14:16 | MM ---
Reason for Exam: Additional evaluation requested from prior study. Last screening mammogram was performed 3 month(s) ago. Patient History: Menarche at age 12. First Full-Term at age 41. Late child-bearing (after 30). Postmenopausal. Breast cancer, left, age 68. 05/15/2024, Malignant MG stereo VAD BX LT on the left side. 06/10/1999, Benign Excisional Biopsy on the left side. Sister had breast cancer, age 64. Sister had breast cancer, age 49. Sister had breast cancer, age 39. Prior Study Comparison: 03/21/2023 Bilateral MG 3D screening mammo w/cad, [facility]. 03/24/2024 Bilateral MG 3D screening mammo w/cad, [facility]. 04/30/2024 Left MG 3D work up w/cad LT, [facility]. 06/03/2024 Bilateral MR breast bilat wo/w con, [facility]. Tissue Density: Right: There are scattered areas of fibroglandular density. Findings: Analyzed By CAD. Area of nonmass-like enhancement within the right breast correlates with some fibroglandular tissue with punctate calcifications no suspicious pleomorphic calcifications definitively visualized. Second look ultrasound will be performed of the right breast. Overall Assessment: Incomplete: need additional imaging evaluation, BI-RAD 0 Management: Diagnostic Breast Ultrasound of the right breast. Results were given to the patient verbally at the time of exam. Patient should continue monthly self-breast exams. A clinical breast exam by your physician is recommended on an annual basis. This exam should not preclude additional follow-up of suspicious palpable abnormalities. Note on Mi scores and lifetime risk: 1. A Mi score greater than 3% is considered moderate risk. If this is the case, consider specialist referral to assess eligibility for a risk reducing agent. 2. If overall lifetime risk for the development of breast cancer is 20% or higher, the patient may qualify for future screening with alternating mammogram and breast MRI. [facility], , 06/12/2024 2:13 PM. Electronically signed and approved by: Manny Heck DO
--- NOTE | 2024-06-12 14:29 | USB ---
Reason for Exam: Additional evaluation requested from prior study. Patient History: Menarche at age 12. First Full-Term at age 41. Late child-bearing (after 30). Postmenopausal. Breast cancer, left, age 68. 05/15/2024, Malignant MG stereo VAD BX LT on the left side. 06/10/1999, Benign Excisional Biopsy on the left side. Sister had breast cancer, age 64. Sister had breast cancer, age 49. Sister had breast cancer, age 39. Technique: Method: Targeted. Doppler: Color. Patient Position: Supine. Prior Study Comparison: 03/21/2023 Bilateral MG 3D screening mammo w/cad, [facility]. 03/24/2024 Bilateral MG 3D screening mammo w/cad, [facility]. 04/30/2024 Left MG 3D work up w/cad LT, [facility]. Findings: The lateral section of the breast of the right breast, the axilla of the right breast and the retroareolar of the right breast were scanned. Technique utilized:US breast limited RT Image; Ultrasound imaging of: All 4 quadrants, the retroareolar region and axilla. No evidence for organizing fluid collection or mass. No finding to definitively correlate with MRI. Overall Assessment: Negative, BI-RAD 1 Management: Screening Mammogram of both breasts in 1 year. Surgical management for findings on MRI exam. A clinical breast exam by your physician is recommended on an annual basis and results should be correlated with mammographic findings. This exam should not preclude additional follow-up of suspicious palpable abnormalities. Results were given to the patient verbally at the time of exam. [facility], , 06/12/2024 2:21 PM. Electronically signed and approved by: Manny Heck DO
== END | disposition home or self-care (01) ==
LOC: RADMAMWWP 12:39
PROVIDERS: ATTEND Surgery
CPT/HCPCS: 77061; 77065

== ENCOUNTER → 2024-06-23 | Outpatient (CLI) | payer MEDICARE ==
[2024-06-23 08:05] VITALS: BP 139/80; PULSE 66; RESP 16; TEMP 98.3
--- NOTE | 2024-06-23 08:48 | P.PN ---
Subjective Progress Note Date: 06/23/24 Principal diagnosis: left breast invasive lobular cancer Subjective Progress Note Date: 06-13-24 Principal diagnosis: invasive lobular cancer right breast Ramirez Weeks History of present illness: T2 or T3 N0M0ER+Pr+Her2-G2 stage IB clinically (whether T2 or T3) Lanette is a 68-year-old white female initially seen on 05-22-24 who on a sreening mammogram on 03-24-24 was noted to have architectural distortion in the left breast. Ultrasound was performed on 04-30-24 which did not reveal a specific lesion at that site. The patient had further diagnostic left breast mammogram on 04-30-24 and the area of architectural distortion remained at the 2 o'clock position in the left breast. This was personally reviewed with Dr. Mcclain. A stereotactic core biopsy was recommended. She does not feel anything of concern in either breast. She had a left breast open biopsy approximately 26 years ago which was benign. She is not complaining of any trauma or infection in either breast. She does have a family history of breast cancer and that 2 sisters have had breast cancer. Son having unexpected brain surgery the day after first seen/ did well core biopsy on 05-15-24 (+) invasive lobular cancer presentation of case at tumor board on 06-03-24; MRI of the breast done on 06-03-24; lesion in the left breast extends potentially 6.5 cm by 3.1 cm; questionable lesion in the right breast mammogram and ultrasound of area recommended, this was done on 06-12-24 and considered to be BIRAD 1 therefore felt to be benign genetic testing (-) Caffeine: 2 cups/day nicotine: stopped 40 years ago used to smoke 1PPd for 10 years Mi Risk: 6% lifetime risk: 17.4% We have discussed chemoprophylaxis and at this time she is not interested. Family History: sister diagnosed with breast cancer at 29, at 39; mets to brain sister: diagnosed blood cancer at 47 at 49; sister: diagnosed at 67 with breast cancer doing well at this time brother: prostate cancer No hormonal testing done. Hormonal History: menarche: 12 , breast fed yes, age at : 40 menopause: 44 hormones: none BCP: 10 years Surgical history: Left breast biopsy Bilateral knee replacement Abscess left side of neck Bilateral cataract surgery Medical history: HTN Social History: alcohol: occasional nicotine: as above drugs:none Review of Systems - Constitutional Denies fever, Denies weight loss - EENT Eyes: denies blurred vision Ears: bilateral: tinnitus, deny: decreased hearing Ears, nose, mouth and throat: Denies dysphagia - Breasts bilateral: as per HPI - Cardiovascular Denies chest pain, Denies shortness of breath - Respiratory Denies cough - Gastrointestinal Reports as per HPI - Genitourinary Genitourinary: Denies dysuria, Denies hematuria Menstruation: Reports postmenopausal - Musculoskeletal Reports as per HPI - Integumentary Denies rash, Denies unusual bruising - Neurological Denies headaches, Denies syncope - Psychiatric Reports as per HPI - Endocrine Reports as per HPI - Hematologic/Lymphatic Denies easy bleeding, Denies easy bruising Hematologic/Lymphatic Comment(s): low dose baby aspirin - Allergic/Immunologic Reports as per HPI, Reports seasonal allergies Past Medical History Past Medical History: Hypertension Additional Past Medical History / Comment(s): HYPOGLYCEMIA History of Any Multi-Drug Resistant Organisms: None Reported Past Surgical History: Joint Replacement Additional Past Surgical History / Comment(s): RIGHT AND LEFT TOTAL KNEE,THROAT ABSCESS,CARPAL TUNNEL RELEASE Past Anesthesia/Blood Transfusion Reactions: No Reported Reaction Past Psychological History: No Psychological Hx Reported Smoking Status: Former smoker Past Alcohol Use History: None Reported Past Drug Use History: None Reported - Past Family History Mother Family Medical History: No Reported History Medications and Allergies Home Medications Medication Instructions Recorded Confirmed Type Aspirin EC [Ecotrin Low Dose] 81 mg PO DAILY 10/20/18 05/15/24 History Valsartan 40 mg PO DAILY 05/05/24 05/15/24 History Allergies Allergy/AdvReac Type Severity Reaction Status Date / Time latex Allergy BLISTERS Verified 05/15/24 07:57 TAPE Allergy Intermediate Rash/Hives Uncoded 05/15/24 07:57 Objective - Vital Signs Vital signs: Vital Signs Temp 98.3 F 06/23/24 08:03 Pulse 66 06/23/24 08:03 Resp 16 06/23/24 08:03 BP 139/80 06/23/24 08:03 Pulse Ox 98 06/23/24 08:03 FiO2 Intake & Output 06/22/24 06/23/24 06/23/24 18:59 06:59 18:59 Weight 119.748 kg - Constitutional General appearance: Present: cooperative - EENT Eyes: Present: EOMI ENT: Present: hearing grossly normal - Neck Neck: Present: normal ROM - Respiratory Respiratory: bilateral: CTA - Cardiovascular Rhythm: regular Heart sounds: normal: S1, S2 - Integumentary Integumentary: Present: normal turgor - Musculoskeletal Musculoskeletal: Present: gait normal - Psychiatric Psychiatric: Present: A&O x's 3, intact judgment & insight - Additional findings Additional findings: Breast Exam: BRA: 42DD inspection: Right breast larger than left breast, well-healed scar left breast from prior surgery, bilateral grade 3 ptosis Palpation: Right breast: Multi positional exam no dominant masses or nodules of concern, fibrocystic changes Right axilla: No adenopathy of concern Left breast: Multi positional exam no dominant masses or nodules of concern, fibrocystic changes Left axilla: No adenopathy of concern Assessment and Plan Assessment: Impression: Left breast invasive lobular carcinoma MRI questions that extent may be 6.5 cm Genetic testing: Negative Right breast extensive evaluation negative for any evidence of disease which would warrant interventional biopsy Plan: 1. MRI 6.5 cm in the left breast area of disease 2. MRI right breast changes worked up with a right breast mammogram and ultrasound which do not show evidence of lesion in the right breast 3. Genetic testing is negative 4. Will discuss need for metastatic workup and further workup of the left breast with medical oncology
== END ==
LOC: WWCWWP 07:49
PROVIDERS: ATTEND Surgery

== ENCOUNTER → 2024-06-25 | Outpatient (CLI) | payer MEDICARE ==
[2024-06-25 13:50] LABS: African American GFR (CKD) >90 (>60 ml/min/1.73 sqM); Blood Urea Nitrogen 10 mg/dL (7-17); Non-African American GFR(CKD) 89 (>60 ml/min/1.73 sqM)
--- NOTE | 2024-06-27 11:01 | CT ---
EXAMINATION TYPE: CT ChestAbdPelvis w con CT DLP: 1483 mGycm, Automated exposure control for dose reduction was used. DATE OF EXAM: 06/25/2024 2:59 PM COMPARISON: CT chest 10/21/2018 CLINICAL INDICATION:Female, 68 years old with history of C50.412 MALIG NEOPLASM OF UPPER-OUTER QUADRA NT OF; [facility], new dx breast ca Technique: Multiple axial images of the chest, abdomen, and pelvis were obtained following the intrav enous administration of 100 mL Isovue-300. Oral contrast was administered. Two-dimensional coronal an d sagittal reconstructions were obtained. Findings: CHEST: LUNGS/ PLEURA: No pleural effusion, pneumothorax, focal consolidation. Bibasilar linear subsegmental atelectasis. No suspicious pulmonary nodule or mass. AIRWAY: Patent and unremarkable.. HEART: Mildly prominent in size. No pericardial effusion. MEDIASTINUM: No evidence of adenopathy. VASCULATURE: No aortic aneurysm. MUSCULOSKELETAL: No acute osseous abnormalities. Right infraspinatus calcific tendinitis. No aggressi ve osseous lesion. DISH of the mid to lower thoracic spine. SOFT TISSUES/LYMPH NODES: No axillary adenopathy. Lateral left breast 1 cm nodule with biopsy clip abraham collier corresponding to reported breast cancer. LOWER NECK: No significant findings. ABDOMEN: ABDOMEN LIVER: Peripheral right hepatic lobe calcified granuloma. No suspicious lesion. GALLBLADDER AND BILE DUCTS: Unremarkable. PANCREAS: Unremarkable. SPLEEN: Unremarkable. ADRENAL GLANDS: Unremarkable. KIDNEYS AND URETERS: No evidence of hydronephrosis or renal calculus. The kidneys enhance symmetrical ly. Contrast demonstrated within both collecting systems on the delayed phase. PELVIS BLADDER: Unremarkable REPRODUCTIVE: Unremarkable. ABDOMEN & PELVIS STOMACH AND BOWEL: Small hiatal hernia, duodenum is unremarkable. Enteric contrast reaches the distal small bowel. Few scattered sigmoid diverticula without evidence for acute diverticulitis. No focal b owel wall thickening or surrounding inflammatory changes. No evidence of bowel obstruction. PERITONEUM: No evidence of pneumoperitoneum or free fluid. VASCULATURE: No evidence of aortic aneurysm. MUSCULOSKELETAL: No acute osseous abnormalities. No aggressive osseous lesion. Grade 1 anterolisthesi s of L3 on L4 without evidence of pars defects. LYMPH NODES: No evidence for lymphadenopathy. SOFT TISSUE/ABDOMINAL WALL: Unremarkable IMPRESSION: 1. No CT evidence for metastatic disease within the chest, abdomen or pelvis. 2. Left breast 1 cm nodule with biopsy clip likely corresponding to known breast cancer. No axillary adenopathy. 3. Sigmoid diverticulosis without evidence for acute diverticulitis. [facility], , 06/27/2024 10:59 AM
== END | disposition home or self-care (01) ==
LOC: RADCTMAIN 12:14
PROVIDERS: ATTEND Surgery
DX: C50.412 Malignant neoplasm of upper-outer quadrant of left female breast (principal); K57.30 Diverticulosis of large intestine without perforation or abscess without bleeding; Z85.3 Personal history of malignant neoplasm of breast; N63.20 Unspecified lump in the left breast, unspecified quadrant
CPT/HCPCS: 82565; 84520; 71260; 74177; 36415; Q9967

== ENCOUNTER → 2024-06-27 | Outpatient (CLI) | payer MEDICARE ==
[2024-06-27 12:12] VITALS: BP 146/82; PULSE 61; RESP 16; TEMP 97.7
--- NOTE | 2024-06-27 12:22 | P.PN ---
Subjective Progress Note Date: 06/27/24 Principal diagnosis: left breast invasive lobular cancer Subjective Progress Note Date: 06-27-24 Principal diagnosis: left breast invasive lobular cancer Subjective Progress Note Date: 06-13-24 Principal diagnosis: invasive lobular cancer right breast Ramirez Weeks History of present illness: T2 or T3 N0M0ER+Pr+Her2-G2 stage IB clinically (whether T2 or T3) Lanette is a 68-year-old white female initially seen on 05-22-24 who on a sreening mammogram on 03-24-24 was noted to have architectural distortion in the left breast. Ultrasound was performed on 04-30-24 which did not reveal a specific lesion at that site. The patient had further diagnostic left breast mammogram on 04-30-24 and the area of architectural distortion remained at the 2 o'clock position in the left breast. This was personally reviewed with Dr. Mcclain. A stereotactic core biopsy was recommended. She does not feel anything of concern in either breast. She had a left breast open biopsy approximately 26 years ago which was benign. She is not complaining of any trauma or infection in either breast. She does have a family history of breast cancer and that 2 sisters have had breast cancer. Son having unexpected brain surgery the day after first seen/ did well core biopsy on 05-15-24 (+) invasive lobular cancer presentation of case at tumor board on 06-03-24; MRI of the breast done on 06-03-24; lesion in the left breast extends potentially 6.5 cm by 3.1 cm; questionable lesion in the right breast mammogram and ultrasound of area recommended, this was done on 06-12-24 and considered to be BIRAD 1 therefore felt to be benign genetic testing (-) I have discussed with the patient and her the lesion in the left breast may be up to 6.5 cm on the MRI. We have discussed the option of MRI guided biopsy of the 2 greatest extent of the lesion with clips placed so that the lesion could be bracketed if she would want a lumpectomy. At this point the patient would much prefer a mastectomy. We have discussed reconstruction and she is not interested. Secondary to the potential size of the lesion I have recommended a metastatic workup, this will be performed in the near future. If metastatic workup is negative the patient would like to have a left mastectomy with sentinel node biopsy. Risk and benefits of the procedure were discussed with the patient and her . Risk include but are not limited to bleeding, infection, reaction to the anesthetic. Risk of the axillary surgery includes but is not limited to bleeding, infection, reaction to the anesthetic. Additionally there is a risk of injury to the thoracodorsal or long thoracic nerves at risk of lymphedema and a risk of decreased sensation to the left inner arm. She understands and wishes to proceed. Functional assessment: Arm abduction past with no difficulty Pre-op education given patient and her CT scan chest/abdomen/pelvis (-) metastatic disease bone scan not able to be done as no radiotracer until Jul. Case discussed with Dr. Juan Craft concur with mastetomy although bone scan not able to be done clearance Dr. Weeks Caffeine: 2 cups/day nicotine: stopped 40 years ago used to smoke 1PPd for 10 years Mi Risk: 6% lifetime risk: 17.4% We have discussed chemoprophylaxis and at this time she is not interested. Family History: sister diagnosed with breast cancer at 29, at 39; mets to brain sister: diagnosed blood cancer at 47 at 49; sister: diagnosed at 67 with breast cancer doing well at this time brother: prostate cancer No hormonal testing done. Hormonal History: menarche: 12 , breast fed yes, age at : 40 menopause: 44 hormones: none BCP: 10 years Surgical history: Left breast biopsy Bilateral knee replacement Abscess left side of neck Bilateral cataract surgery Medical history: HTN Social History: alcohol: occasional nicotine: as above drugs:none Review of Systems - Constitutional Denies fever, Denies weight loss - EENT Eyes: denies blurred vision Ears: bilateral: tinnitus, deny: decreased hearing Ears, nose, mouth and throat: Denies dysphagia - Breasts bilateral: as per HPI - Cardiovascular Denies chest pain, Denies shortness of breath - Respiratory Denies cough - Gastrointestinal Reports as per HPI - Genitourinary Genitourinary: Denies dysuria, Denies hematuria Menstruation: Reports postmenopausal - Musculoskeletal Reports as per HPI - Integumentary Denies rash, Denies unusual bruising - Neurological Denies headaches, Denies syncope - Psychiatric Reports as per HPI - Endocrine Reports as per HPI - Hematologic/Lymphatic Denies easy bleeding, Denies easy bruising Hematologic/Lymphatic Comment(s): low dose baby aspirin - Allergic/Immunologic Reports as per HPI, Reports seasonal allergies Past Medical History Past Medical History: Hypertension Additional Past Medical History / Comment(s): HYPOGLYCEMIA History of Any Multi-Drug Resistant Organisms: None Reported Past Surgical History: Joint Replacement Additional Past Surgical History / Comment(s): RIGHT AND LEFT TOTAL KNEE,THROAT ABSCESS,CARPAL TUNNEL RELEASE Past Anesthesia/Blood Transfusion Reactions: No Reported Reaction Past Psychological History: No Psychological Hx Reported Smoking Status: Former smoker Past Alcohol Use History: None Reported Past Drug Use History: None Reported - Past Family History Mother Family Medical History: No Reported History Medications and Allergies Home Medications Medication Instructions Recorded Confirmed Type Aspirin EC [Ecotrin Low Dose] 81 mg PO DAILY 10/20/18 05/15/24 History Valsartan 40 mg PO DAILY 05/05/24 05/15/24 History Allergies Allergy/AdvReac Type Severity Reaction Status Date / Time latex Allergy BLISTERS Verified 05/15/24 07:57 TAPE Allergy Intermediate Rash/Hives Uncoded 05/15/24 07:57 Objective - Vital Signs Vital signs: Intake & Output 06/26/24 06/27/24 06/27/24 18:59 06:59 18:59 Weight 117.934 kg - Constitutional General appearance: Present: cooperative - EENT Eyes: Present: EOMI ENT: Present: hearing grossly normal - Neck Neck: Present: normal ROM - Respiratory Respiratory: bilateral: CTA - Cardiovascular Rhythm: regular Heart sounds: normal: S1, S2 - Integumentary Integumentary: Present: normal turgor - Musculoskeletal Musculoskeletal: Present: gait normal - Psychiatric Psychiatric: Present: A&O x's 3, appropriate affect, intact judgment & insight - Additional findings Additional findings: Breast Exam: BRA: 42DD inspection: Right breast larger than left breast, well-healed scar left breast from prior surgery, bilateral grade 3 ptosis Palpation: Right breast: Multi positional exam no dominant masses or nodules of concern, fibrocystic changes Right axilla: No adenopathy of concern Left breast: Multi positional exam no dominant masses or nodules of concern, fibrocystic changes Left axilla: No adenopathy of concern Assessment and Plan Assessment: Impression: Left breast invasive lobular carcinoma MRI questions that extent may be 6.5 cm Genetic testing: Negative Right breast extensive evaluation negative for any evidence of disease which would warrant interventional biopsy Done on 06-25-2024 CT chest abdomen and pelvis no evidence of any metastatic disease, bone scan could not be done secondary to lack of radiotracer, this was discussed with Dr. Alexis Welsh and he felt that it was safe to proceed as though this was negative metastatic workup. I have also discussed with the patient and she understands and wishes to proceed. Plan: 1. MRI 6.5 cm in the left breast area of disease 2. MRI right breast changes worked up with a right breast mammogram and ultrasound which do not show evidence of lesion in the right breast 3. Genetic testing is negative 4. Left mastectomy, left sentinel node injection, left sentinel node biopsy, possible left axillary node dissection 5. clearance DR. Weeks Risk and benefits of the procedure discussed with the patient. Risk include but are not limited to bleeding, infection, reaction to the anesthetic. There is a possibility that the extent of disease in the left breast is less than 6.5 cm which was of suspicion on the MRI the patient understands this and wishes to proceed with a mastectomy. Risk from the sentinel node biopsy/axillary node dissection include but are not limited to bleeding, infection, reaction to the anesthetic. There is a risk of decreased sensation to the inner arm or lymphedema. There is a risk of injury to the thoracodorsal or long thoracic nerve with wing scapula. The patient understands and wishes to proceed. Additional CC's: Ramirez Weeks
== END ==
LOC: WWCWWP 10:48
PROVIDERS: ATTEND Surgery
DX: Z48.817 Encounter for surgical aftercare following surgery on the skin and subcutaneous tissue (principal); Z85.3 Personal history of malignant neoplasm of breast; Z80.3 Family history of malignant neoplasm of breast; Z87.891 Personal history of nicotine dependence; Z91.040 Latex allergy status; Z91.048 Other nonmedicinal substance allergy status

== ENCOUNTER 2024-07-01 07:06 | Day surgery (SDC) | payer MEDICARE ==
[~2024-07-01 07:06] MED LIST changes: -ALPRAZolam 0.25 MG TAB PO PRN; +ALPRAZolam 0.5 MG TAB PO PRN; +HYDROmorphone 0.5 MG/0.5 ML SYRINGE IVP PRN; +LIDOCAINE 1% (10MG/ML) FOR IV START INTRADERMA PRN; +MORPHINE SULFATE 4 MG/ML SYRINGE IV PRN; +SCOPOLAMINE 1 MG/72 HR PATCH TRANSDERM ONE; +fentaNYL (PF) 50 MCG/ML 2 ML AMP IV PRN
[2024-07-01 08:03] LABS: Glucose,Whole Blood 101 mg/dL (70-110)
[2024-07-01] MEDS: LACTATED RINGERS 1,000 ML IV SCH (08:07)
[2024-07-01] MEDS: DEXAMETHASONE SOD PHOSPHATE 4 MG/ML 1 ML VIAL IV ONE (08:08)
[2024-07-01] MEDS: ONDANSETRON 4 MG/2 ML VIAL IVP ONE (08:08)
[2024-07-01] MEDS: ACETAMINOPHEN TAB 500 MG TAB PO PRN (08:08)
[2024-07-01] MEDS: IV FLUID CONTINUATION 1,000 ML IV ONE ×2 (08:16→11:01)
[2024-07-01] MEDS: MIDAZOLAM 2 MG/2 ML VIAL IV PRN (09:04)
[2024-07-01] MEDS: HEPARIN SODIUM,PORCINE 5,000 UNIT/ML 1 ML VIAL SQ PRN (09:12)
[2024-07-01] MEDS ORDERED: MIDAZOLAM 2 MG/2 ML VIAL ONE (09:21)
[2024-07-01] MEDS ORDERED: SODIUM CHLORIDE 0.9% (PF) 10 ML VIAL ONE (09:21)
[2024-07-01] MEDS ORDERED: ePHEDrine 50 MG/ML 1 ML VIAL ONE (09:21)
[2024-07-01] MEDS ORDERED: SUCCINYLCHOLINE CHLORIDE 200 MG/10 ML VIAL IV ONE (09:21)
[2024-07-01] MEDS ORDERED: ROPIVACAINE 5 MG/ML 30 ML VIAL ONE (09:21)
[2024-07-01] MEDS ORDERED: PROPOFOL 10 MG/ML 20 ML VIAL IV ONE (09:21)
[2024-07-01] MEDS ORDERED: LIDOCAINE 1% INJ 10MG/ML (20 ML MDV) ONE (09:21)
[2024-07-01] MEDS ORDERED: fentaNYL (PF) 50 MCG/ML 2 ML AMP ONE (09:21)
[2024-07-01] MEDS ORDERED: LIDOCAINE 4% LTA KIT (4 ML) TOPICAL ONE (09:21)
[2024-07-01] MEDS ORDERED: DEXAMETHASONE SOD PHOSPHATE 4 MG/ML 1 ML VIAL ONE (09:21)
--- NOTE | 2024-07-01 09:31 | P.NAPBC ---
NAPBC Queries - NAPBC Queries Was patient's case review presented at [facility] tumor board? If no, comment.: Yes Was patient's pathology reviewed at [facility]? If no, comment.: Yes Was breast conservation surgery offered? If no, comment.: Yes Was sentinel node biopsy offered? If no, comment.: Yes Was diagnosis confirmed by percutaneous core biopsy? If no, comment.: Yes Is patient mastectomy patient?: Yes Was a preop referral to reconstructive surgeon offered?: Yes Clinical Stage: stage ! invasive lobular left breast cancer [id number]
[2024-07-01] MEDS: METHYLENE BLUE 50 MG/10 ML AMPUL INJ ONE (09:45)
[2024-07-01] MEDS: LIDOCAINE 1% INJ 10MG/ML (5 ML VIAL-PF) SQ ONE ×2 (10:06→11:58)
--- NOTE | 2024-07-01 10:39 | NM ---
EXAMINATION TYPE: NM sentinel node injection DATE OF EXAM: 07/01/2024 COMPARISON: NONE INDICATION: Abnormal mammogram. Informed consent was obtained. A timeout was performed. The area around the left nipple was cleansed with alcohol. In a single dose, a total of 531.0 uCi T echnetium 99m Tilmanocept was injected. The patient tolerated the procedure very well. IMPRESSION: 1. Successful injection for sentinel node evaluation. [facility], , 07/01/2024 10:36 AM
--- NOTE | 2024-07-01 11:57 | P.BCAON ---
Date of Procedure: 07/01/24 Preoperative Diagnosis: Left breast invasive lobular carcinoma Postoperative Diagnosis: Same Procedure(s) Performed: Left mastectomy with sentinel node sampling Anesthesia: RODRICK Surgeon: Maddy Moser Estimated Blood Loss (ml): 30 IV fluids (ml): 1,000 Pathology: other (Left breast, left axillary tissue) Condition: stable Disposition: floor Indications for Procedure: Biopsy-proven left breast invasive lobular carcinoma Operative Findings: Fibrofatty breast tissue Description of Procedure: The patient is a 68-year-old white female status post left breast biopsy revealing an invasive lobular carcinoma. An MRI of the breast revealed the lesion may have an expansive 6 cm and after discussed with the patient and she was given the option of MRI guided biopsy but she chose to have a left mas tectomy. She understands that the lesion may not be that large but secondary to the findings on the MRI there is concern and therefore she opted for the mastectomy. The patient had injection of radiotracer in the left periareolar region in the preoperative area. She was brought to the operative suite. Following induction of anesthesia the neoprobe was used to interrogate the axilla. Minimal radiotracer was identified in the axilla and therefore 5 cc of half percent methylene blue was injected into the periareolar area and the breast was massaged for 5 minutes. Following this the left breast and axilla were prepped and draped in a sterile fashion. The superior and inferior skin flap markings were made. A superior skin flap was developed and carried down to the pectoralis muscle. A an inferior skin flap was developed and carried down to the pectoralis muscle. The breast was resected from medial to lateral off the pectoralis muscle using the electrocautery device as well as the harmonic scalpel. The breast was removed. Axillary contents were interrogated. No area of increased radioactivity was identified. The lower axillary tissues were examined and no blue node was ident ified. No specific radial tracer or methylene blue were identified in any kian tissue. The axillary tissue was opened and no palpable nodes were identified. The lower axillary tissue was sent as axillary tissue. A specific node was not identified. After we are sure that hemostasis was attained the mastectomy cavity and the axilla were irrigated. 2 number JOSEPH drains were placed. No residual radioactive or blue lymph nodes were identified. No palpable nodes of concern were identified. The drains were secured using nylon suture. The subcutaneous tissue was closed using interrupted 3-0 Vicryl sutures followed by a 3-0 Vicryl running suture. This was followed by a 4-0 Monocryl skin suture. 10 cc of 1% lidocaine were injected into the incision at the end of the case. The patient tolerated the procedure in stable condition. All instrument and sponge counts were correct at the end of the case. - Sentinal Node Biopsy Operation performed with curative intent: Yes Tracer(s) used in upfront surgery (non-neoadjuvant): radioactive tracer All nodes present at end of dye-filled channel removed: Yes All significantly radioactive nodes were removed: Yes All palpably suspicious nodes were removed: Yes Clipped positive nodes identified and removed: N/A
[2024-07-01] MEDS ORDERED: NALOXONE 0.4 MG/ML 1 ML VIAL IV PRN (11:58)
--- NOTE | 2024-07-01 13:29 | P.ANPRN ---
Procedure Note - Anesthesia - Nerve Block Performed Left Erector Spinae Single Time Out Performed: Yes Date of Procedure: 07/01/24 Procedure Start Time: : Procedure Stop Time: :07 Location of Patient: PreOp Indication: Acute Post-Operative Pain, Requested by Surgeon Sedation Type: Sedate with meaningful contact maintained Preparation: Sterile Prep Position: Sitting Needle Types: Pajunk Needle Gauge: 21 Ultrasound used to visualize needle placement: Yes Ultrasound used to observe medication spread: Yes Blood Aspirated: No Pain Paresthesia on Injection Noted: No Resistance on Injection: Normal Image Stored and Saved: Yes Events: Uneventful and Well Tolerated (Ropivacaine 0.5% 15 cc plus normal saline 10 cc plus dexamethasone 4 mg given at T6 on the left side)
[2024-07-01] MEDS: HYDROcodone/APAP 5-325MG 1 EACH TAB PO PRN (14:09)
[2024-07-01] MEDS: DEXTROSE 5%-0.45% NACL 1,000 ML IV SCH (14:14)
[2024-07-01] MEDS: HYDROmorphone 1 MG/ML 1 ML SYRINGE IVP PRN (14:59)
[2024-07-01] MEDS: HEPARIN SODIUM,PORCINE 5,000 UNIT/ML 1 ML VIAL SQ SCH (16:19)
[2024-07-01] MEDS ORDERED: HYDROmorphone 0.5 MG/0.5 ML SYRINGE IVP PRN (22:07)
[2024-07-01] MEDS: diphenhydrAMINE 25 MG CAP PO STA (22:13)
[2024-07-01] MEDS: ONDANSETRON 4 MG/2 ML VIAL IVP PRN (22:40)
[2024-07-02 06:21] LABS: Basophils % (A) 0 %; Eosinophils % (A) 0 %; HCT 41.8 % (34.0-46.0); HGB 13.1 gm/dL (11.4-16.0); Hypochromasia Slight; Lymphocytes # (A) 1.3 k/uL (1.0-4.8); Lymphocytes % (A) 13 %; MCH 30.2 pg (25.0-35.0); MCHC 31.4 g/dL (31.0-37.0); MCV 96.2 fL (80.0-100.0); Mean Platelet Volume 8.4; Monocytes # (A) 0.4 k/uL (0-1.0); Monocytes % (A) 4 %; Neutrophils # (A) 7.5 k/uL (1.3-7.7); Neutrophils % (A) 81 %; Platelet Count 325 k/uL (150-450); RBC 4.35 m/uL (3.80-5.40); RDW 13.5 % (11.5-15.5); WBC 9.3 k/uL (3.8-10.6)
[2024-07-02 10:19] VITALS: BP 107/56; PULSE 61; RESP 14; TEMP 97.9
[2024-07-02] MEDS ORDERED: VALSARTAN 40 MG TAB PO SCH (10:30)
--- NOTE | 2024-07-02 11:23 | P.PN ---
Subjective Progress Note Date: 07/02/24 Principal diagnosis: Postop day #1 left mastectomy Lanette is a 68-year-old white female postop day #1 left mastectomy with axillary node sampling. She is doing well postoperative. JOSEPH output is minimal. Her pain is under control. She is tolerating diet. Objective - Vital Signs Vital signs: Vital Signs Temp 97.9 F 07/02/24 08:00 Pulse 61 07/02/24 08:00 Resp 14 07/02/24 08:00 BP 107/56 07/02/24 08:00 Pulse Ox 97 07/02/24 08:00 FiO2 Intake & Output 07/01/24 07/02/24 07/02/24 18:59 06:59 18:59 Intake Total 1550 Output Total 30 8 Balance 1520 -8 Weight 117.5 kg Intake: IV 1350 Intake, IV Titration 200 Amount Dextrose 5%-0.45% NaCl 1, 200 000 ml @ 100 mls/hr IV . Q10H ABDIEL Rx#:[id number] Output: Drainage 8 Left Breast 5 Left Breast A 3 Estimated Blood Loss 30 Other: # Voids 1 2 - Constitutional General appearance: Present: cooperative - EENT Eyes: Present: EOMI ENT: Present: hearing grossly normal - Neck Neck: Present: normal ROM - Respiratory Respiratory: bilateral: CTA - Cardiovascular Rhythm: regular Heart sounds: normal: S1, S2 - Integumentary Integumentary Comment(s): incision left chest wall clean and dry, no evidence of any seroma Integumentary: Present: normal turgor - Labs CBC & Chem 7: 07/02/24 06:06 Assessment and Plan Assessment: Impression: Patient doing well postop Plan: Discharge home to follow with Dr. Segal as an outpatient Teach patient and family drain care
--- NOTE | 2024-07-02 11:26 | P.DS ---
Providers Date of admission: 07-01-24 Expected date of discharge: 07/02/24 Attending physician: Maddy Moser Consults: 07/01/24 12:01 Consult Physician Routine Consulting Provider: Jorge Melchor Consult Reason/Comments: medical managment Do you want consulting provider notified?: Yes Primary care physician: [facility] Course: The patient is a 68-year-old white female who underwent a left mastectomy with axillary node sampling on 07-01-2024. Postoperatively she is doing well and ready for discharge on 07-02-2024. Assessment: stable Procedures: Left mastectomy and axillary node sampling on 07-01-2024 Patient Condition at Discharge: Stable Plan - Discharge Summary Discharge Rx Participant: Yes New Discharge Prescriptions: New oxyCODONE HCL [OxyIR] 5 mg PO Q6H PRN #5 tab PRN Reason: Breakthrough Pain No Action Aspirin EC [Ecotrin Low Dose] 81 mg PO DAILY Valsartan 40 mg PO DAILY Cholecalciferol [Vitamin D3 (25 Mcg = 1000 Iu)] 1 tab PO DAILY Discharge Medication List Aspirin EC [Ecotrin Low Dose] 81 mg PO DAILY 10/20/18 [History] Valsartan 40 mg PO DAILY 05/05/24 [History] Cholecalciferol [Vitamin D3 (25 Mcg = 1000 Iu)] 1 tab PO DAILY 06/26/24 [History] oxyCODONE HCL [OxyIR] 5 mg PO Q6H PRN #5 tab 07/01/24 [Rx] Follow up Appointment(s)/Referral(s): Maddy Moser MD [STAFF PHYSICIAN] - 1 Week Activity/Diet/Wound Care/Special Instructions: Teach patient and family drain care Do not drive until seen by Dr. Segal Drain and record JOSEPH output twice daily and as needed Wear bra at all times May shower after 48 hours
--- NOTE | 2024-07-02 21:16 | P.CONS ---
History of Present Illness - Reason for Consult Consult date: 07/02/24 Medical management Requesting physician: Maddy Moser - Chief Complaint Mastectomy - History of Present Illness This is a very pleasant 68-year-old patient, follows with Dr. Weeks. Patient underwent left mastectomy with sentinel node sampling. Has a diagnosis of invasive lobular carcinoma. This morning sitting up in a chair. No nausea vomiting. Did tolerate her breakfast. Pain is controlled. JOSEPH drain in place. Review of systems: GEN.: None EYES: None HEENT: None NECK: None RESPIRATORY: None CARDIOVASCULAR: None GASTROINTESTINAL: None GENITOURINARY: None MUSCULOSKELETAL: [Some pain at the operative site LYMPHATICS: None HEMATOLOGICAL: None PSYCHIATRY: None NEUROLOGICAL: None Social history: Lives alone. No history of smoking alcohol Physical examination: VITAL SIGNS: 97.9, 61, 14, 107 x 56, 97% room air GENERAL: BMI 39.4, up in a chair, comfortable. EYES: Pupils equal. Conjunctiva lu l. HEENT: External appearance of nose and ears normal, oral cavity grossly normal. NECK: JVD not raised; masses not palpable. HEART: First and second heart sounds are normal; no edema. LUNGS: Respiratory rate normal; clear to auscultation. ABDOMEN: Soft, nontender, liver spleen not palpable, no masses palpable. PSYCH: Alert and oriented x3; mood and affect lu l. MUSCULOSKELETAL:No Clubbing/cyanosis;muscles-grossly intact NEUROLOGICAL: Cranial nerves grossly intact; no facial asymmetry, power and sensation grossly intact. LYMPHATICS: No lymph nodes palpable in the axilla and neck CHEST wall: Dressing over the same. JOSEPH drain INVESTIGATIONS, reviewed in the clinical context: July 02: White count 9.3 hemoglobin 13.1 platelets 325 Assessment plan: -Left mastectomy with sentinel node sampling for invasive lobular carcinoma JOSEPH drain in place. Pain control -Essential hypertension Valsartan Care was discussed with the patient. Questions answered. Patient to keep an eye and daily blood pressure check. Follow-up with PCP upon discharge. Thank you Dr. Yuni Edwards Past Medical History Past Medical History: Cancer, Hypertension Additional Past Medical History / Comment(s): HYPOGLYCEMIA, new dx. breast cancer History of Any Multi-Drug Resistant Organisms: None Reported Past Surgical History: Joint Replacement Additional Past Surgical History / Comment(s): RIGHT AND LEFT TOTAL KNEE, THROAT ABSCESS, CARPAL TUNNEL RELEASE Past Anesthesia/Blood Transfusion Reactions: Postoperative Nausea & Vomiting (PONV) Past Psychological History: No Psychological Hx Reported Smoking Status: Never smoker Past Alcohol Use History: None Reported Additional Past Alcohol Use History / Comment(s): quit smoking in mid 20's, smoked 10 yrs. 1ppd Past Drug Use History: None Reported - Past Family History Mother Family Medical History: No Reported History Sister(s) Family Medical History: Cancer Additional Family Medical History / Comment(s): 2 sisters w/breast cancer Medications and Allergies Home Medications Medication Instructions Recorded Confirmed Type Aspirin EC [Ecotrin Low Dose] 81 mg PO DAILY 10/20/18 07/01/24 History Valsartan 40 mg PO DAILY 05/05/24 07/01/24 History Cholecalciferol [Vitamin D3 (25 1 tab PO DAILY 06/26/24 07/01/24 History Mcg = 1000 Iu)] oxyCODONE HCL [OxyIR] 5 mg PO Q6H PRN #5 tab 07/01/24 Rx Allergies Allergy/AdvReac Type Severity Reaction Status Date / Time latex Allergy BLISTERS Verified 07/01/24 07:33 TAPE Allergy Intermediate Rash/Hives Uncoded 07/01/24 07:33 Physical Exam Vitals: Vital Signs Temp Pulse Pulse Resp BP Pulse Ox 07/02/24 00:00 97.7 F 53 L 16 103/66 95 07/01/24 15:45 98.0 F 69 17 129/79 92 L 07/01/24 15:14 78 17 147/80 07/01/24 14:45 98.2 F 80 17 151/86 96 07/01/24 14:30 66 18 153/72 93 L 07/01/24 14:15 67 16 146/68 95 07/01/24 14:00 97.8 F 78 18 151/67 95 07/01/24 13:38 70 14 160/71 93 L 07/01/24 13:17 75 14 152/66 92 L 07/01/24 12:57 75 16 160/75 93 L 07/01/24 12:42 73 16 169/83 98 07/01/24 12:26 79 16 167/70 98 07/01/24 12:11 97 F L 90 14 169/73 98 Intake and Output 07/01/24 07/02/24 07/02/24 22:59 06:59 14:59 Intake Total 200 Balance 200 Intake: Intake, IV Titration 200 Amount Dextrose 5%-0.45% NaCl 1, 200 000 ml @ 100 mls/hr IV . Q10H ABDIEL Rx#:[id number] Other: # Voids 1 2 Results CBC & Chem 7: 07/02/24 06:06
== END 2024-07-02 12:05 ==
LOC: OR 07:06 → 4FBP 11:59 → OR 07-02 12:05
PROVIDERS: ATTEND Surgery
DX: D05.02 Lobular carcinoma in situ of left breast (principal); Z90.12 Acquired absence of left breast and nipple
CPT/HCPCS: 64999; 19303; 38525; 38792; A9520; J2250; J1644; J1100; J0690; J2405; J2003; J1171; Q9968; 85025

== ENCOUNTER → 2024-07-10 | Outpatient (CLI) | payer MEDICARE ==
[2024-07-10 13:47] VITALS: BP 147/87; PULSE 75; RESP 17; TEMP 97.9
--- NOTE | 2024-07-10 13:55 | P.BCPO ---
Progress Note - Text Progress Note Date: 07/10/24 Dena is status post a left breast mastectomy and axillary sampling on 07-01-24. Pathology revealed extensive lobular hyperplasia/lobular carcinoma in situ as well as focal flat epithelial atypia and atypical ductal hyperplasia. There was a 2 mm area of invasive lobular carcinoma. Axillary contents revealed benign adipose tissue but no lymph nodes were identified. Pathology revealed invasive lobular carcinoma 2 mm, margins negative for invasive malignancy. Extensive ALH/LCIS, focal flat epithelial atypia, and atypical ductal hyperplasia. Axillary contents benign adipose tissue no lymph nodes identified. Examination: Lungs: Clear Heart: Regular rate and rhythm Incision: Clean and dry JOSEPH output A and B minimal Impression: patient doing well Plan: remove both JOSEPH follow up medical oncology follow up here in 4 months may return to work Post Op Education - Post Op Education Post Op Education Provided Date: 07/10/24 - Functional Assessment Performed?: Yes (arm abduction passed) Referal Provided?: No Path Report - Was patient given path report? Path Report Date Given: 07/10/24
== END ==
LOC: WWCWWP 13:25
PROVIDERS: ATTEND Surgery
DX: D05.00 Lobular carcinoma in situ of unspecified breast (principal); D24.9 Benign neoplasm of unspecified breast; D17.9 Benign lipomatous neoplasm, unspecified; Z90.12 Acquired absence of left breast and nipple; Z87.891 Personal history of nicotine dependence; Z91.048 Other nonmedicinal substance allergy status; Z91.040 Latex allergy status

== ENCOUNTER → 2024-08-15 | Outpatient (CLI) | payer MEDICARE ==
--- NOTE | 2024-08-15 12:42 | P.PN ---
Subjective Progress Note Date: 08/15/24 Principal diagnosis: invasive lobular cancer left breast [id number]+Her2-G2; pT1a Lanette is a 69-year-old white female initially seen on 05-22-24 who on a sreening mammogram on 03-24-24 was noted to have architectural distortion in the left breast. Ultrasound was performed on 04-30-24 which did not reveal a specific lesion at that site. The patient had further diagnostic left breast mammogram on 04-30-24 and the area of architectural distortion remained at the 2 o'clock position in the left breast. This was personally reviewed with Dr. Mcclain. A stereotactic core biopsy was recommended. She does not feel anything of concern in either breast. She had a left breast open biopsy approximately 26 years ago which was benign. She is not complaining of any trauma or infection in either breast. She does have a family history of breast cancer and that 2 sisters have had breast cancer. Son had unexpected brain surgery the day after first seen/ did well core biopsy on 05-15-24 (+) invasive lobular cancer presentation of case at tumor board on 06-03-24; MRI of the breast done on 06-03-24; lesion in the left breast extends potentially 6.5 cm by 3.1 cm; questionable lesion in the right breast mammogram and ultrasound of area recommended, this was done on 06-12-24 and considered to be BIRAD 1 therefore felt to be benign genetic testing (-) Patient opted for a left breast mastectomy which was done on 07-01-24. 2mm ILC noted no kian tissue. Al margins (-). prior to surgery secondary to the MRI findings metastatic workup was done. CT scan chest/abdomen/pelvis (-) metastatic disease bone scan not able to be done as no radiotracer until Jul. Case discussed with Dr. Juan Craft concur with mastetomy although bone scan not able to be done note medical oncology 07-15-24 not need radiation, not need chemotherapy, consi sudarshan endocrine therapy patient is going to thing about this Caffeine: 2 cups/day nicotine: stopped 40 years ago used to smoke 1PPd for 10 years Family History: sister diagnosed with breast cancer at 29, at 39; mets to brain sister: diagnosed blood cancer at 47 at 49; sister: diagnosed at 67 with breast cancer doing well at this time brother: prostate cancer No hormonal testing done. Hormonal History: menarche: 12 , breast fed yes, age at : 40 menopause: 44 hormones: none BCP: 10 years Surgical history: Left breast biopsy Bilateral knee replacement Abscess left side of neck Bilateral cataract surgery Medical history: HTN Social History: alcohol: occasional nicotine: as above drugs:none Review of Systems - Constitutional Denies fever, Denies weight loss - EENT Eyes: denies blurred vision Ears: bilateral: tinnitus, deny: decreased hearing Ears, nose, mouth and throat: Denies dysphagia - Breasts bilateral: as per HPI - Cardiovascular Denies chest pain, Denies shortness of breath - Respiratory Denies cough - Gastrointestinal Reports as per HPI - Genitourinary Genitourinary: Denies dysuria, Denies hematuria Menstruation: Reports postmenopausal - Musculoskeletal Reports as per HPI - Integumentary Denies rash, Denies unusual bruising - Neurological Denies headaches, Denies syncope - Psychiatric Reports as per HPI - Endocrine Reports as per HPI - Hematologic/Lymphatic Denies easy bleeding, Denies easy bruising Hematologic/Lymphatic Comment(s): low dose baby aspirin - Allergic/Immunologic Reports as per HPI, Reports seasonal allergies Past Medical History Past Medical History: Hypertension Additional Past Medical History / Comment(s): HYPOGLYCEMIA History of Any Multi-Drug Resistant Organisms: None Reported Past Surgical History: Joint Replacement Additional Past Surgical History / Comment(s): RIGHT AND LEFT TOTAL KNEE,THROAT ABSCESS,CARPAL TUNNEL RELEASE Past Anesthesia/Blood Transfusion Reactions: No Reported Reaction Past Psychological History: No Psychological Hx Reported Smoking Status: Former smoker Past Alcohol Use History: None Reported Past Drug Use History: None Reported - Past Family History Mother Family Medical History: No Reported History Medications and Allergies Home Medications Medication Instructions Recorded Confirmed Type Aspirin EC [Ecotrin Low Dose] 81 mg PO DAILY 10/20/18 05/15/24 History Valsartan 40 mg PO DAILY 05/05/24 05/15/24 History Allergies Allergy/AdvReac Type Severity Reaction Status Date / Time latex Allergy BLISTERS Verified 05/15/24 07:57 TAPE Allergy Intermediate Rash/Hives Uncoded 05/15/24 07:57 Objective - Constitutional General appearance: Present: cooperative - EENT Eyes: Present: EOMI ENT: Present: hearing grossly normal - Neck Neck: Present: normal ROM - Respiratory Respiratory: bilateral: CTA - Cardiovascular Heart sounds: normal: S1, S2 - Integumentary Integumentary: Present: normal turgor - Musculoskeletal Musculoskeletal: Present: gait normal - Psychiatric Psychiatric: Present: A&O x's 3, appropriate affect, intact judgment & insight - Additional findings Additional findings: Breast Exam: Bra: 42DDD Inspection: Well-healed scar left chest wall Right breast: No dominant masses or nodules of concern Right axilla: No adenopathy of concern Left chest wall: Incision clean and dry well-healed there are some stitches in the lateral aspect of the incision which are going to be removed today she does have probable small seroma which is not bothering her she does have redundant axillary tissue which is uncomfortable for her Left axilla: No adenopathy of concern Assessment and Plan Assessment: Impression: Left breast stage I invasive lobular carcinoma completely resected not a candidate for radiation is going to start hormone therapy in August 2024 Redundant left axillary tissue which is bothering the patient Asymmetry with right breast macromastia Plan: Right breast reduction Left breast scar revision Probable start tamoxifen in the near future cc: Dr. Weeks
[2024-08-15 12:46] VITALS: BP 165/89; PULSE 82; RESP 17; TEMP 98.9
== END ==
LOC: WWCWWP 11:50
PROVIDERS: ATTEND Surgery
DX: C50.912 Malignant neoplasm of unspecified site of left female breast (principal); N62 Hypertrophy of breast; N64.89 Other specified disorders of breast; Z80.3 Family history of malignant neoplasm of breast; Z87.891 Personal history of nicotine dependence; Z17.21 Progesterone receptor positive status; Z17.0 Estrogen receptor positive status [ER+]; Z91.040 Latex allergy status; Z91.048 Other nonmedicinal substance allergy status

== ENCOUNTER → 2024-12-19 | Outpatient (CLI) | payer MEDICARE ==
--- NOTE | 2024-12-19 10:55 | P.PN ---
Subjective Progress Note Date: 12/19/24 Principal diagnosis: invasive lobular cancer left breast [id number]+Her2-G2; pT1a Subjective Progress Note Date: 08/15/24 Principal diagnosis: invasive lobular cancer left breast [id number]+Her2-G2; pT1a April 2024 Lanette is a 69-year-old white female initially seen on 05-22-24 who on a sreening mammogram on 03-24-24 was noted to have architectural distortion in the left breast. Ultrasound was performed on 04-30-24 which did not reveal a specific lesion at that site. The patient had further diagnostic left breast mammogram on 04-30-24 and the area of architectural distortion remained at the 2 o'clock position in the left breast. This was personally reviewed with Dr. Mcclain. A stereotactic core biopsy was recommended. She does not feel anything of concern in either breast. She had a left breast open biopsy approximately 26 years ago which was benign. She is not complaining of any trauma or infection in either breast. She does have a family history of breast cancer and that 2 sisters have had breast cancer. Son had unexpected brain surgery the day after first seen/ did well core biopsy on 05-15-24 (+) invasive lobular cancer presentation of case at tumor board on 06-03-24; MRI of the breast done on 06-03-24; lesion in the left breast extends potentially 6.5 cm by 3.1 cm; questionable lesion in the right breast mammogram and ultrasound of area recommended, this was done on 06-12-24 and considered to be BIRAD 1 therefore felt to be benign genetic testing (-) Patient opted for a left breast mastectomy which was done on 07-01-24. 2mm ILC noted no kian tissue. Al margins (-). prior to surgery secondary to the MRI findings metastatic workup was done. CT scan chest/abdomen/pelvis (-) metastatic disease bone scan not able to be done as no radiotracer until Case discussed with Dr. Juan Craft concur with mastetomy although bone scan not able to be done note medical oncology 07-15-24 not need radiation, not need chemotherapy, consider endocrine therapy patient is going to think about this; she decided against this She is going to have a right breast reduction at [facility], and remova l of accessory tissue left axilla She is not complaining of any new lumps masses or nodules of concern in the right breast or on the left chest wall. Caffeine: 2 cups/day nicotine: stopped 40 years ago used to smoke 1PPd for 10 years Family History: sister diagnosed with breast cancer at 29, at 39; mets to brain sister: diagnosed blood cancer at 47 at 49; sister: diagnosed at 67 with breast cancer doing well at this time brother: prostate cancer No hormonal testing done. Hormonal History: menarche: 12 , breast fed yes, age at : 40 menopause: 44 hormones: none BCP: 10 years Surgical history: Left breast biopsy Bilateral knee replacement Abscess left side of neck Bilateral cataract surgery left mastectomy and SNB (-) Medical history: HTN Social History: alcohol: occasional nicotine: as above drugs:none Review of Systems - Constitutional Denies fever, Denies weight loss - EENT Eyes: denies blurred vision Ears: bilateral: tinnitus, deny: decreased hearing Ears, nose, mouth and throat: Denies dysphagia - Breasts bilateral: as per HPI - Cardiovascular Denies chest pain, Denies shortness of breath - Respiratory Denies cough - Gastrointestinal Reports as per HPI - Genitourinary Genitourinary: Denies dysuria, Denies hematuria Menstruation: Reports postmenopausal - Musculoskeletal Reports as per HPI - Integumentary Denies rash, Denies unusual bruising - Neurological Denies headaches, Denies syncope - Psychiatric Reports as per HPI - Endocrine Reports as per HPI - Hematologic/Lymphatic Denies easy bleeding, Denies easy bruising Hematologic/Lymphatic Comment(s): low dose baby aspirin - Allergic/Immunologic Reports as per HPI, Reports seasonal allergies Past Medical History Past Medical History: Hypertension Additional Past Medical History / Comment(s): HYPOGLYCEMIA History of Any Multi-Drug Resistant Organisms: None Reported Past Surgical History: Joint Replacement Additional Past Surgical History / Comment(s): RIGHT AND LEFT TOTAL KNEE,THROAT ABSCESS,CARPAL TUNNEL RELEASE Past Anesthesia/Blood Transfusion Reactions: No Reported Reaction Past Psychological History: No Psychological Hx Reported Smoking Status: Former smoker Past Alcohol Use History: None Reported Past Drug Use History: None Reported - Past Family History Mother Family Medical History: No Reported History Medications and Allergies Home Medications Medication Instructions Recorded Confirmed Type Aspirin EC [Ecotrin Low Dose] 81 mg PO DAILY 10/20/18 05/15/24 History Valsartan 40 mg PO DAILY 05/05/24 05/15/24 History Allergies Allergy/AdvReac Type Severity Reaction Status Date / Time latex Allergy BLISTERS Verified 05/15/24 07:57 TAPE Allergy Intermediate Rash/Hives Uncoded 05/15/24 07:57 Objective - Constitutional General appearance: Present: cooperative - EENT Eyes: Present: EOMI ENT: Present: hearing grossly normal - Neck Neck: Present: normal ROM - Respiratory Respiratory: bilateral: CTA - Cardiovascular Rhythm: regular Heart sounds: normal: S1, S2 - Integumentary Integumentary: Present: normal turgor - Musculoskeletal Musculoskeletal: Present: gait normal - Psychiatric Psychiatric: Present: A&O x's 3, appropriate affect, intact judgment & insight - Additional findings Additional findings: Breast Exam: Bra: 42DDD Inspection: Well-healed scar left chest wall; right breast grade 3 ptosis Right breast: No dominant masses or nodules of concern Right axilla: No adenopathy of concern Left chest wall: Incision clean and dry well-healed Left axilla: No adenopathy of concern Assessment and Plan Assessment: Impression: Left breast stage I invasive lobular carcinoma completely resected not a candidate for radiation, opted to not have hormone therapy Redundant left axillary tissue which is bothering the patient Asymmetry with right breast macromastia Plan: Right breast reduction is going to have this done at [facility] Left breast scar revision right breast mammogram in April with appointment follow up sooner any concerns cc: Dr. Weeks
[2024-12-19 11:03] VITALS: BP 137/83; PULSE 79; RESP 18; TEMP 97
== END ==
LOC: WWCWWP 10:57
PROVIDERS: ATTEND Surgery
DX: Z12.31 Encounter for screening mammogram for malignant neoplasm of breast (principal); N62 Hypertrophy of breast; N64.89 Other specified disorders of breast; Z87.891 Personal history of nicotine dependence; Z91.040 Latex allergy status; Z91.048 Other nonmedicinal substance allergy status